=== PATIENT | male | born 1975 | race Caucasian/White ===

== ENCOUNTER 2018-06-02 20:06 | Inpatient (IN) | payer OTHER ==
[2018-06-02 20:50] VITALS: BMI 27.4
[2018-06-02] MEDS ORDERED: MELATONIN 5 MG TABLETS PO PRN (22:00)
--- NOTE | 2018-06-02 22:41 | HP ---
COWS - Scale Resting Pulse: 1= [place] 81-100 Sweatin=Flushed/Facial Moisture Restless Observation: 0= Sits Still Pupil Size: 0= Normal to Room Light Bone or Joint Aches: 4=Acute Joint/Muscle Pain Runny Nose/ Eye Tearin= Runny Nose/Eyes GI Upset > 30mins: 2= Nausea/Diarrhea (no diarrhea) Tremor Observation: 4= Gross Tremor/Twitching Yawning Observation: 0= None Anxiety or Irritability: 2=Irritable/Anxious Goose Flesh Skin: 0=Smooth Skin COWS Score: 17 Admission [facility] Chief Complaint: Heroin withdrawal symptoms History of Present Illness: 42 years old male with a long history of heroin dependence is seeking admission to detox. Patient has been in previous detox and reports 2 years of sobriety. He has medical history of anxiety. Denies suicide attempt and suicidal ideation at this time - Ebola screening Have you traveled outside of the country in the last 21 days: No (N) Have you had contact with anyone from an Ebola affected area: No Have you been sick,other than usual withdrawal symptoms: No Do you have a fever: No - Review of Systems Constitutional: Chills, Loss of Appetite, Malaise, Changes in sleep, Weakness EENT: reports: No Symptoms Reported Respiratory: reports: No Symptoms reported Cardiac: reports: No Symptoms Reported GI: reports: Poor Appetite, Poor Fluid Intake, Abdominal cramping : reports: No Symptoms Reported Musculoskeletal: reports: Joint Pain, Muscle Pain Integumentary: reports: Dryness Neuro: reports: Tremors Endocrine: reports: No Symptoms Reported Hematology: reports: No Symptoms Reported Psychiatric: reports: Anxious, Depressed Other Systems: Reviewed and Negative Patient History - Patient Medical History Hx Anemia: No Hx Asthma: No Hx Chronic Obstructive Pulmonary Disease (COPD): No Hx Cancer: No Hx Cardiac Disorders: No Hx Congestive Heart Failure: No Hx Hypertension: No Hx Hypercholesterolemia: No Hx Pacemaker: No HX Cerebrovascular Accident: No Hx Seizures: No Hx Dementia: No Hx Diabetes: No Hx Gastrointestinal Disorders: No Hx Liver Disease: No Hx Genitourinary Disorders: No Hx Sexually Transmitted Disorders: No Hx Renal Disease (ESRD): No Hx Thyroid Disease: No Hx Human Immunodeficiency Virus (HIV): No (Negative 2017) Hx Hepatitis C: No Hx Depression: No Hx Suicide Attempt: No (Denies suicidal ideation at this time) Hx Bipolar Disorder: No Hx Schizophrenia: No Other Medical History: Anxiety - Not on medication - Patient Surgical History Past Surgical History: No - PPD History Previous Implant?: No Documented Results: Negative w/o proof Implanted On Prior R Admission?: No PPD to be Administered?: Yes - Reproductive History Patient is a Female of Child Bearing Age (11 -55 yrs old): No (Male) - Smoking Cessation Smoking history: Current every day smoker Have you smoked in the past 12 months: Yes Aproximately how many cigarettes per day: 20 Hx Chewing Tobacco Use: No Initiated information on smoking cessation: Yes 'Breaking Loose' booklet given: 06/02/18 - Substance & Tx. History Hx Alcohol Use: No Hx Substance Use: Yes Substance Use Type: Cocaine, Opiates Hx Substance [facility]: [facility] [place] - Substances Abused Heroin Route: Injection Frequency: Daily Amount used: 20 bags Age of first use: 29 Date of Last Use: 06/02/18 Cocaine Route: Smoking Frequency: Daily Amount used: $40 Age of first use: 19 Date of Last Use: 06/01/18 Family Disease History - Family Disease History Family History: Denies Admission Physical Exam S - Vital Signs Vital Signs: Vital Signs - 24 hr 06/02/18 20:42 Temperature 97.7 F Pulse Rate 86 Respiratory 18 Rate Blood Pressure 150/100 - Physical General Appearance: Yes: No Apparent Distress, Moderate Distress, Tremorous, Irritable, Anxious HEENTM: Yes: EOMI, Normal ENT Inspection, Normocephalic, Normal Voice, CAR Respiratory: Yes: Lungs Clear, Normal Breath Sounds, No Respiratory Distress Neck: Yes: Supple Breast: Yes: Breast Exam Deferred Cardiology: Yes: Regular Rhythm, Regular Rate Abdominal: Yes: Normal Bowel Sounds, Soft Genitourinary: Yes: Within Normal Limits Back: Yes: Normal Inspection Musculoskeletal: Yes: Muscle Pain Extremities: Yes: Tremors Neurological: Yes: Alert, Normal Mood/Affect Integumentary: Yes: Warm Lymphatic: Yes: Within Normal Limits - Diagnostic (1) Anxiety Current Visit: Yes Status: Chronic (2) Opioid dependence with withdrawal Current Visit: Yes Status: Chronic (3) Nicotine dependence Current Visit: Yes Status: Chronic Qualifiers: Nicotine product type: cigarettes Substance use status: uncomplicated Qualified Code(s): F17.210 - Nicotine dependence, cigarettes, uncomplicated Cleared for Admission [facility] - Detox or Rehab [facility] Level of Care: Medically Managed Detox Regimen/Protocol: Methadone [facility] Breath Alcohol Content Breath Alcohol Content: 0 Urine Drug Screen - Results Drug Screen Negative: Yes Urine Drug Screen Results: MIKHAIL-Cocaine, OPI-Opiates
[2018-06-02] MEDS ORDERED: NICOTINE POLACRILEX 2 MG GUM BC PRN (22:50)
[2018-06-02] MEDS ORDERED: guaiFENesin/D-METHORPHAN HB 10 ML UNIT-DOSE CUPS PO PRN (22:50)
[2018-06-02] MEDS ORDERED: ACETAMINOPHEN 325 MG TABLET (FP) PO PRN (22:50)
[2018-06-02] MEDS ORDERED: MAG HYDROX/AL HYDROX/SIMETH 30 ML UNIT-DOSE CUP PO PRN (22:50)
[2018-06-02] MEDS ORDERED: IBUPROFEN 400 MG TABLET (FP) PO PRN (22:50)
[2018-06-02] MEDS ORDERED: LOPERAMIDE HCL 2 MG CAPSULE PO PRN (22:50)
[2018-06-02] MEDS ORDERED: MENTHOL/PHENOL 1 EACH UD MM PRN (22:50)
[2018-06-02] MEDS ORDERED: MAGNESIUM CITRATE 300 ML BOTTLE PO PRN (22:50)
[2018-06-02] MEDS ORDERED: MAGNESIUM HYDROX 2400MG/30ML ORAL SUSPENSION 30 ML CUP PO PRN (22:50)
[2018-06-02] MEDS ORDERED: METHADONE HCL 10 MG TABLET (FOR DETOX USE ONLY) PO ONE ×2 (22:50→23:00)
[2018-06-02] MEDS ORDERED: P-EPHED 60MG/TRIPROLIDI 2.5MG TABLET PO PRN (22:50)
[2018-06-03] MEDS ORDERED: diazePAM 5 MG TABLET PO PRN (00:28)
[2018-06-03] MEDS ORDERED: METHADONE HCL 10 MG TABLET (FOR DETOX USE ONLY) PO ONE ×4 (00:28→23:00)
[2018-06-03] MEDS: diazePAM 5 MG TABLET PO PRN ×3 (00:48→22:12)
[2018-06-03] MEDS: PRENATAL VITAMINS W/ FOLIC ACID TABLET (FP) PO SCH (10:12)
[2018-06-03] MEDS: NICOTINE 14 MG/24 HOURS TOPICAL PATCH TD SCH (10:12)
[2018-06-03 10:41] LABS: HEMATOCRIT 41.7 % (35.4-49); HEMOGLOBIN 14.1 GM/dL (11.7-16.9); MCH 30.8 pg (25.7-33.7); MCHC 33.8 g/dl (32.0-35.9); MEAN CELL VOLUME 91.2 fl (80-96); MEAN PLT VOLUME 7.3 fl (7.5-11.1); PLATELET COUNT 239 K/MM3 (134-434); RBC 4.57 M/mm3 (4.00-5.60); RDW 14.3 % (11.9-15.9); WHITE BLOOD COUNT 6.6 K/mm3 (4.0-10.0)
--- NOTE | 2018-06-03 10:54 | PN ---
BHS COWS - Scale Resting Pulse: 0= [place] 80 or Below Sweatin= No chills or Flushing Restless Observation: 0= Sits Still Pupil Size: 0= Normal to Room Light Bone or Joint Aches: 2= Severe Diffuse Aches Runny Nose/ Eye Tearin= None GI Upset > 30mins: 1= Stomach Cramp Tremor Observation of Outstretched Hands: 0= None Yawning Observation: 0= None Anxiety or Irritability: 0= None Goose Flesh Skin: 0=Smooth Skin COWS Score: 3 BHS Progress Note (SOAP) Subjective: PATIENT PRESENTS WITH BODY ACHES AND MILD NAUSEA AND STOMACH CRAMPS. Objective: 06/03/18 10:50 Laboratory Tests 06/03/18 07:00 WBC 6.6 RBC 4.57 Hgb 14.1 Hct 41.7 MCV 91.2 MCH 30.8 MCHC 33.8 RDW 14.3 Plt Count 239 MPV 7.3 L Vital Signs Temperature 97.4 F L 06/03/18 09:35 Pulse Rate 95 H 06/03/18 09:35 Respiratory Rate 18 06/03/18 09:35 Blood Pressure 123/80 06/03/18 09:35 O2 Sat by Pulse Oximetry (%) PE: ALERT AND ORIENTED SKIN WARM AND DRY CAR S1S2 RESP CTA BL GI SOFT, BS, NT EXT NO EDEMA Assessment: 06/03/18 10:52 A/P: WITHDRAWAL SYNDROME Plan: CONTINUE DETOX PER PROTOCOL ENCOURAGE ORAL FLUIDS CONTINUE TO MONITOR CLINICALLY
[2018-06-03 11:42] LABS: ALBUMIN 3.3 g/dl (3.4-5.0); ALK PHOS 91 U/L (45-117); ANION GAP 11 MMOL/L (8-16); BILIRUBIN,TOTAL 0.4 mg/dL (0.2-1); BLOOD UREA NITROGEN 9 mg/dL (7-18); CALCIUM 8.5 mg/dL (8.5-10.1); CHLORIDE 105 mmol/L (98-107); CO2 27 mmol/L (21-32); CREATININE 0.6 mg/dL (0.55-1.3); GLUCOSE,RANDOM 66 mg/dL (74-106); POTASSIUM 3.7 mmol/L (3.5-5.1); SGOT/AST 29 U/L (15-37); SGPT/ALT 32 U/L (13-61); SODIUM 143 mmol/L (136-145)
--- NOTE | 2018-06-03 16:36 | EKG ---
Test Reason : Blood Pressure : / mmHG Vent. Rate : 063 BPM Atrial Rate : 063 BPM P-R Int : 142 ms QRS Dur : 094 ms QT Int : 386 ms P-R-T Axes : 071 064 052 degrees QTc Int : 395 ms NORMAL SINUS RHYTHM NORMAL ECG NO PREVIOUS ECGS AVAILABLE Confirmed by MD Dulce, Onel ([id number]) on 06/03/2018 4:35:54 PM Referred By: Confirmed By:Onel Cardona MD
--- NOTE | 2018-06-03 18:10 | CONSULT ---
[facility] Psychiatric Consult - Data Date of interview: 06/03/18 Admission source: [facility] Identifying data: Readmission to [facility] for this 42 y/o male self referred for detoxification treatment (heroin,cocaine).Admitted to [address] [place] [address].Patient is ,a father of two,domiciled,currently unemployed and deprived of income. Substance Abuse History: Discusssed with patient in this interview.patient admits to a heavy dependence on heroin and cocaine.Details in current [facility] report : Smoking history: Current every day smoker. Have you smoked in the past 12 months: Yes. Aproximately how many cigarettes per day: 20. Hx Chewing Tobacco Use: No. Initiated information on smoking cessation: Yes. 'Breaking Loose' booklet given: 06/02/18. - Substance & Tx. History. Hx Alcohol Use: No. Hx Substance Use: Yes. Substance Use Type: Cocaine, Opiates. Hx Substance Use Treatment: Yes ([facility], [place], [place]). - Substances Abused. Heroin. Route: Injection. Frequency: Daily. Amount used: 20 bags. Age of first use: 29. Date of Last Use: 06/02/18. Cocaine. Route: Smoking. Frequency: Daily. Amount used: $40. Age of first use: 19. Date of Last Use: 06/01/18 Medical History: Patient endorses good general health. Psychiatric History: Patient denies. Physical/Sexual Abuse/Trauma History: Patient denies. Additional Comment: Urine Drug Screen Results: MIKHAIL-Cocaine, OPI-Opiates.Noted. Mental Status Exam - Mental Status Exam Alert and Oriented to: Time, Place, Person Cognitive Function: Good Patient Appearance: Disheveled Mood: Hostile, Nervous, Withdrawn, Irritable Affect: Mood Congruent Patient Behavior: Fatigued, Uncooperative Speech Pattern: Clear Voice Loudness: Normal Thought Process: Goal Oriented Thought Disorder: Not Present Hallucinations: Denies Suicidal Ideation: Denies Homicidal Ideation: Denies Insight/Judgement: Poor Sleep: Well Appetite: Good Muscle strength/Tone: Normal Gait/Station: Other (not observed ; in bed during entire interview) Psychiatric Findings - Problem List ([place] 1, 2,3) (1) Opioid dependence with withdrawal Current Visit: Yes Status: Acute (2) Cocaine dependence Current Visit: Yes Status: Acute (3) Nicotine dependence Current Visit: Yes Status: Acute Qualifiers: Nicotine product type: cigarettes Substance use status: uncomplicated Qualified Code(s): F17.210 - Nicotine dependence, cigarettes, uncomplicated - Initial Treatment Plan Initial Treatment Plan: Psychoeducation.Sleep hygiene.Detoxification.Patient is encouraged to get out bed, join in activities and participate in daily therapy sessions.Not receptive to redirections.Will continue to observe.Patient declines psychotropic medications with the exception of the components of his detoxification protocol.No indication for active psychiatric intervention.
[2018-06-03] MEDS ORDERED: THIAMINE HCL 100 MG TABLET (FP) PO SCH (22:00)
[2018-06-04 09:15] VITALS: BP 103/67; PULSE 98; TEMP 97.3
[2018-06-04] MEDS ORDERED: METHADONE HCL 5 MG TABLET (FOR DETOX USE ONLY) PO ONE (10:00)
[2018-06-04] MEDS ORDERED: METHADONE HCL 10 MG TABLET (FOR DETOX USE ONLY) PO ONE (10:00)
[2018-06-04] MEDS: NICOTINE 14 MG/24 HOURS TOPICAL PATCH TD SCH (10:11)
[2018-06-04] MEDS: PRENATAL VITAMINS W/ FOLIC ACID TABLET (FP) PO SCH (10:11)
--- NOTE | 2018-06-04 14:03 | PN ---
S Progress Note Note: NOTIFIED BY RN PATIENT REQUESTED TO SIGN OUT AMA. PATIENT EVALUATED AND IS CLINICALLY STABLE. ALERT AND ORIENTED X 3. SKIN WARM AND DRY. DENIES SI/HI. PATIENT ENCOURAGED TO COMPLETE DETOX BUT REFUSED. ENCOURAGED TO ATTEND GROUP MEETINGS TO PREVENT RELAPSE. Vital Signs Temperature 97.3 F L 06/04/18 09:14 Pulse Rate 98 H 06/04/18 09:14 Respiratory Rate 18 06/04/18 09:14 Blood Pressure 103/67 06/04/18 09:14 O2 Sat by Pulse Oximetry (%) Laboratory Tests 06/03/18 06/03/18 06/03/18 07:00 07:00 07:00 WBC 6.6 RBC 4.57 Hgb 14.1 Hct 41.7 MCV 91.2 MCH 30.8 MCHC 33.8 RDW 14.3 Plt Count 239 MPV 7.3 L Sodium 143 Potassium 3.7 Chloride 105 Carbon Dioxide 27 Anion Gap 11 BUN 9 Creatinine 0.6 Creat Clearance w eGFR > 60 Random Glucose 66 L Calcium 8.5 Total Bilirubin 0.4 AST 29 ALT 32 Alkaline Phosphatase 91 Total Protein 6.0 L Albumin 3.3 L RPR Titer Nonreactive
[2018-06-05] MEDS ORDERED: METHADONE HCL 5 MG TABLET (FOR DETOX USE ONLY) PO ONE ×2 (10:00)
[2018-06-06] MEDS ORDERED: METHADONE HCL 10 MG TABLET (FOR DETOX USE ONLY) PO ONE (10:00)
[2018-06-06] MEDS ORDERED: METHADONE HCL 5 MG TABLET (FOR DETOX USE ONLY) PO ONE (10:00)
[2018-06-07] MEDS ORDERED: METHADONE HCL 5 MG TABLET (FOR DETOX USE ONLY) PO ONE (06:00)
[2018-06-07] MEDS ORDERED: METHADONE HCL 10 MG TABLET (FOR DETOX USE ONLY) PO ONE (10:00)
[2018-06-08] MEDS ORDERED: METHADONE HCL 5 MG TABLET (FOR DETOX USE ONLY) PO ONE (06:00)
== END 2018-06-04 11:00 | disposition home or self-care (01) | DRG 773 ==
LOC: YASAS 20:06 → Y3N 22:54
PROC: HZ2ZZZZ Detoxification Services for Substance Abuse Treatment (ICD-10-PCS; principal; 2018-06-02)
DX: F11.23 Opioid dependence with withdrawal (principal); F14.20 Cocaine dependence, uncomplicated; F17.210 Nicotine dependence, cigarettes, uncomplicated; F41.9 Anxiety disorder, unspecified
CPT/HCPCS: 36415; 80053; 85027; 86593; 93005; 93010

== ENCOUNTER 2018-10-04 18:36 | Inpatient (IN) | payer OTHER ==
[2018-10-04 19:17] VITALS: BMI 25.7
--- NOTE | 2018-10-04 21:01 | HP ---
"COWS - Scale Resting Pulse: 0= [place] 80 or Below Sweatin=Flushed/Facial Moisture Restless Observation: 5= Unable to Sit Still Pupil Size: 0= Normal to Room Light Bone or Joint Aches: 4=Acute Joint/Muscle Pain Runny Nose/ Eye Tearin= Nasal Congestion GI Upset > 30mins: 3= Vomiting/Diarrhea Tremor Observation: 0= None Yawning Observation: 1= 1-2x During Session Anxiety or Irritability: 2=Irritable/Anxious Goose Flesh Skin: 0=Smooth Skin COWS Score: 18 CIWA Score - Admission Criteria [facility] Guidelines: Admission for Medically Managed Detox: Requires at least one of the followin. CIWA greater than 12 2. Seizures within the past 24 hours 3. Delirium tremens within the past 24 hours 4. Hallucinations within the past 24 hours 5. Acute intervention needed for co occurring medical disorder 6. Acute intervention needed for co occurring psychiatric disorder 7. Severe withdrawal that cannot be handled at a lower level of care (continued vomiting, continued diarrhea, abnormal vital signs) requiring intravenous medication and/or fluids 8. Admission ROS [facility] Chief Complaint: C/O WORSENING WITHDRAWAL SX'S. SEEKING DETOX Allergies/Adverse Reactions: Allergies Allergy/AdvReac Type Severity Reaction Status Date / Time seafood Allergy Mild Hives Uncoded 10/04/18 20:49 History of Present Illness: 42 Y.O. MALE WITH HX/O OPIOID DEPENDENCE HERE FOR DETOX. CLIENT IS KNOWN TO THIS PROGRAM. SELF REFERRED TODAY. PRESENTING W/ C/O WORSENING WITHDRAWAL SX'S. COW 18 . HE REPORTS RECENT FAILED ATTEMPT OF SBX MGMT. LAST RX NOTED 7 DAYS AGO FOR 7 DAY SUPPLY. CLIENT STATES HE HAS BEEN USING HEROIN BECAUSE THE SBX IS NOT HOLDING HIM AND NO LONGER WANTS TO CONTINUE IT. UTOX NEG FOR SBX. 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 DENIES RECENT CLEAN TIME. REPORTS HX/O 4 DRUG OVERDOSE. DENIES HX/O OR PRESENT SI/HI, AVH, SEIZURE D/O. LIVES ALONE IN AN APT, EMPLOYED- [employer], DENIES LEGALS PMHX- DENIES PSYCH- DENIES Search Terms: TANYA COATES, 1975 Search Date: 10/04/2018 08:52:02 PM The Drug Utilization Report below displays all of the controlled substance prescriptions, if any, that your patient has filled in the last twelve months. The information displayed on this report is compiled from pharmacy submissions to the Department, and accurately reflects the information as submitted by the pharmacies. This report was requested by: Mabel Smith | Reference #: [id number] You have not added a NICOLE number. Keeping your NICOLE number(s) up to date on the My NICOLE Numbers page will enable the separation of your prescriptions from others ' in the search results. Others' Prescriptions Patient Name: Tanya Coates Date: 1975 Address: [address] [place] [address] Sex: Male Rx Written Rx Dispensed Drug Quantity Days Supply Prescriber Name 09/25/2018 09/27/2018 suboxone 8 mg-2 mg sl film 21 7 David Forde Jr, MD 09/04/2018 09/05/2018 suboxone 8 mg-2 mg sl film 42 14 Shea Sue MD 08/18/2018 08/18/2018 suboxone 8 mg-2 mg sl film 42 14 David Forde Jr, MD 08/05/2018 08/06/2018 suboxone 8 mg-2 mg sl film 42 14 Cordell Coe MD 07/14/2018 07/19/2018 clonazepam 1 mg tablet 14 7 Iris Mooney MD Exam Limitations: No Limitations - Ebola screening Have you traveled outside of the country in the last 21 days: No Have you been sick,other than usual withdrawal symptoms: No Do you have a fever: No - Review of Systems Constitutional: Chills, Loss of Appetite, Malaise, Night Sweats, Changes in sleep, Unintentional Wgt. Loss EENT: reports: Dental Problems (TOP DENTURES MISSING BOTTOM TEETH) Respiratory: reports: No Symptoms reported Cardiac: reports: No Symptoms Reported GI: reports: Nausea, Poor Appetite, Poor Fluid Intake, Vomiting, Abdominal cramping : reports: No Symptoms Reported Musculoskeletal: reports: Back Pain Integumentary: reports: Flushing Neuro: reports: No Symptoms reported Endocrine: reports: No Symptoms Reported Hematology: reports: No Symptoms Reported Psychiatric: reports: Anxious, Depressed Other Systems: Reviewed and Negative Patient History - Patient Medical History Hx Anemia: No Hx Asthma: No Hx Chronic Obstructive Pulmonary Disease (COPD): No Hx Cancer: No Hx Cardiac Disorders: No Hx Congestive Heart Failure: No Hx Hypertension: No Hx Hypercholesterolemia: No Hx Pacemaker: No HX Cerebrovascular Accident: No Hx Seizures: No Hx Dementia: No Hx Diabetes: No Hx Gastrointestinal Disorders: No Hx Liver Disease: No Hx Genitourinary Disorders: No Hx Sexually Transmitted Disorders: No Hx Renal Disease (ESRD): No Hx Thyroid Disease: No Hx Human Immunodeficiency Virus (HIV): No Hx Hepatitis C: No Hx Depression: Yes Hx Suicide Attempt: No Hx Bipolar Disorder: No Hx Schizophrenia: No - Patient Surgical History Past Surgical History: Yes Other Surgical History: TONSILECTOMY Anesthesia Reaction: No - PPD History Previous Implant?: Yes Documented Results: Negative w/o proof Implanted On Prior [facility] Admission?: No PPD to be Administered?: Yes - Smoking Cessation Smoking history: Current every day smoker Have you smoked in the past 12 months: Yes Aproximately how many cigarettes per day: 30 Hx Chewing Tobacco Use: No Initiated information on smoking cessation: Yes 'Breaking Loose' booklet given: 10/04/18 - Substance & Tx. History Hx Alcohol Use: No Hx Substance Use: Yes Substance Use Type: Heroin Hx Substance Use Treatment: Yes ([facility]) - Substances Abused Heroin Route: Injection Frequency: Daily Amount used: 15 BAGS Age of first use: 34 Date of Last Use: 10/04/18 Family Disease History - Family Disease History Family Disease History: Other: Grandparent (ALCOHOLISM), Father (HEROIN ADDICT) , Mother (ALCOHOLISM) Admission Physical Exam BHS - Vital Signs Vital Signs: Vital Signs - 24 hr 10/04/18 19:14 Temperature 97.7 F Pulse Rate 69 Respiratory 18 Rate Blood Pressure 146/76 - Physical General Appearance: Yes: Appropriately Dressed, Mild Distress, Sweating (FLUSHED ), Anxious HEENTM: Yes: EOMI, Normocephalic, Normal Voice, CAR, Pharynx Normal, Nasal Congestion, Other (POOR DENTITION TOP DENTURES AND MISSING BOTTOM TEETH) Respiratory: Yes: Chest Non-Tender, Lungs Clear, Normal Breath Sounds, No Respiratory Distress, No Accessory Muscle Use Neck: Yes: No masses,lesions,Nodules, Supple, Trachea in good position Breast: Yes: Breast Exam Deferred Cardiology: Yes: Regular Rhythm, Regular Rate, S1, S2 Abdominal: Yes: Normal Bowel Sounds, Non Tender, Flat, Soft Genitourinary: Yes: Other (NO C/O) Back: Yes: Normal Inspection Musculoskeletal: Yes: full range of Motion, Gait Steady Extremities: Yes: Normal Capillary Refill, Normal Range of Motion, Non-Tender, Other (SCABBED ABRASIONS TO RIGHT HAND DIGITS) Neurological: Yes: dural mechanic II-XII NML intact, Fully Oriented, Alert, Motor Strength 5/5 Integumentary: Yes: Warm, Other (FLUSHED) Lymphatic: Yes: Within Normal Limits - Diagnostic (1) Substance induced mood disorder Current Visit: Yes Status: Acute (2) IVDU (intravenous drug user) Current Visit: Yes Status: Chronic (3) Nicotine dependence Current Visit: Yes Status: Chronic Qualifiers: Nicotine product type: cigarettes Substance use status: uncomplicated Qualified Code(s): F17.210 - Nicotine dependence, cigarettes, uncomplicated (4) Opioid dependence with withdrawal Current Visit: Yes Status: Acute (5) Dry mucous membranes Current Visit: Yes Status: Acute (6) At risk for dehydration due to poor fluid intake Current Visit: Yes Status: Acute Cleared for Admission [facility] - Detox or Rehab [facility] Level of Care: Medically Managed Detox Regimen/Protocol: Methadone Claeared for Rehab Admission: No [facility] Breath Alcohol Content Breath Alcohol Content: 0 Urine Drug Screen - Results Drug Screen Negative: No Urine Drug Screen Results: FEN-Fentanyl"
[2018-10-04] MEDS ORDERED: MENTHOL/PHENOL 1 EACH UD MM PRN (21:07)
[2018-10-04] MEDS ORDERED: MAGNESIUM HYDROX 2400MG/30ML ORAL SUSPENSION 30 ML CUP PO PRN (21:07)
[2018-10-04] MEDS ORDERED: guaiFENesin/D-METHORPHAN HB 10 ML UNIT-DOSE CUPS PO PRN (21:07)
[2018-10-04] MEDS ORDERED: MAGNESIUM CITRATE 300 ML BOTTLE PO PRN (21:07)
[2018-10-04] MEDS ORDERED: IBUPROFEN 400 MG TABLET (FP) PO PRN (21:07)
[2018-10-04] MEDS ORDERED: P-EPHED 60MG/TRIPROLIDI 2.5MG TABLET PO PRN (21:07)
[2018-10-04] MEDS ORDERED: ACETAMINOPHEN 325 MG TABLET (FP) PO PRN (21:07)
[2018-10-04] MEDS ORDERED: MAG HYDROX/AL HYDROX/SIMETH 30 ML UNIT-DOSE CUP PO PRN (21:07)
[2018-10-04] MEDS ORDERED: NICOTINE POLACRILEX 2 MG GUM BC PRN (21:07)
[2018-10-04] MEDS ORDERED: LOPERAMIDE HCL 2 MG CAPSULE PO PRN (21:07)
[2018-10-04] MEDS ORDERED: METHADONE HCL 10 MG TABLET (FOR DETOX USE ONLY) PO ONE ×2 (21:07→23:00)
[2018-10-04] MEDS ORDERED: MELATONIN 5 MG TABLETS PO PRN (22:00)
[2018-10-04] MEDS: diazePAM 5 MG TABLET PO PRN (23:19)
[2018-10-04] MEDS: THIAMINE HCL 100 MG TABLET (FP) PO SCH (23:22)
[2018-10-05] MEDS ORDERED: METHADONE HCL 10 MG TABLET (FOR DETOX USE ONLY) PO ONE (10:00)
[2018-10-05] MEDS: diazePAM 5 MG TABLET PO PRN ×2 (10:06→17:20)
[2018-10-05] MEDS: PRENATAL VITAMINS W/ FOLIC ACID TABLET (FP) PO SCH (10:06)
[2018-10-05] MEDS: NICOTINE 21 MG/24 HOURS TOPICAL PATCH TD SCH (10:06)
[2018-10-05 11:29] LABS: URINE APPEARANCE CLEAR; URINE BILIRUBIN NEGATIVE (<2.0 mg/dL); URINE COLOR YELLOW; URINE GLUCOSE (UA) NEGATIVE (NEGATIVE); URINE KETONE NEGATIVE (NEGATIVE); URINE LEUK ESTERASE NEGATIVE (NEGATIVE); URINE NITRITE NEGATIVE (NEGATIVE); URINE PROTEIN NEGATIVE (NEGATIVE); URINE UROBILINOGEN NEGATIVE mg/dL (0.2-1.0)
--- NOTE | 2018-10-05 14:20 | PN ---
S COWS - Scale Resting Pulse: 0= [place] 80 or Below Sweatin= Chills/Flushing Restless Observation: 1= Difficult to Sit Still Pupil Size: 1= Pupils >than Normal Bone or Joint Aches: 2= Severe Diffuse Aches Runny Nose/ Eye Tearin= Nasal Congestion GI Upset > 30mins: 2= Nausea/Diarrhea Tremor Observation of Outstretched Hands: 2= Slight Tremor Visible Yawning Observation: 2= >3x During Session Anxiety or Irritability: 2=Irritable/Anxious Goose Flesh Skin: 0=Smooth Skin COWS Score: 14 BHS Progress Note (SOAP) Subjective: irritable tremor body aches sweating restlessness Objective: 10/05/18 14:20 Vital Signs Temperature 96.4 F L 10/05/18 13:21 Pulse Rate 86 10/05/18 13:21 Respiratory Rate 18 10/05/18 13:21 Blood Pressure 112/78 10/05/18 13:21 O2 Sat by Pulse Oximetry (%) Laboratory Last Values Urine Color Yellow 10/05/18 08:20 Urine Appearance Clear 10/05/18 08:20 Urine pH 5.0 (5.0-8.0) 10/05/18 08:20 Ur Specific [place] 1.016 (1.010-1.035) 10/05/18 08:20 Urine Protein Negative (NEGATIVE) 10/05/18 08:20 Urine Glucose (UA) Negative (NEGATIVE) 10/05/18 08:20 Urine Ketones Negative (NEGATIVE) 10/05/18 08:20 Urine Blood Negative (NEGATIVE) 10/05/18 08:20 Urine Nitrite Negative (NEGATIVE) 10/05/18 08:20 Urine Bilirubin Negative (<2.0 mg/dL) 10/05/18 08:20 Urine Urobilinogen Negative mg/dL (0.2-1.0) 10/05/18 08:20 Ur Leukocyte Esterase Negative (NEGATIVE) 10/05/18 08:20 lab noted Assessment: 10/05/18 14:22 withdrawal sx Plan: continue detox
[2018-10-05] MEDS: THIAMINE HCL 100 MG TABLET (FP) PO SCH (23:19)
[2018-10-06] MEDS ORDERED: METHADONE HCL 5 MG TABLET (FOR DETOX USE ONLY) PO ONE (10:00)
[2018-10-06] MEDS: diazePAM 5 MG TABLET PO PRN ×2 (10:06→16:33)
[2018-10-06] MEDS: NICOTINE 21 MG/24 HOURS TOPICAL PATCH TD SCH (10:06)
[2018-10-06] MEDS: PRENATAL VITAMINS W/ FOLIC ACID TABLET (FP) PO SCH (10:06)
--- NOTE | 2018-10-06 11:32 | PN ---
S COWS - Scale Resting Pulse: 0= [place] 80 or Below Sweatin= Chills/Flushing Restless Observation: 1= Difficult to Sit Still Pupil Size: 1= Pupils >than Normal Bone or Joint Aches: 2= Severe Diffuse Aches Runny Nose/ Eye Tearin= Nasal Congestion GI Upset > 30mins: 2= Nausea/Diarrhea Tremor Observation of Outstretched Hands: 1= Tremor [place], Not Seen Yawning Observation: 1= 1-2x During Session Anxiety or Irritability: 1=Feels Anxious/Irritable Goose Flesh Skin: 0=Smooth Skin COWS Score: 11 S Progress Note (SOAP) Subjective: body aches joints pain irritable agitative Objective: 10/06/18 11:32 Vital Signs Temperature 98.6 F 10/06/18 09:15 Pulse Rate 64 10/06/18 09:15 Respiratory Rate 18 10/06/18 09:15 Blood Pressure 125/72 10/06/18 09:15 O2 Sat by Pulse Oximetry (%) Laboratory Last Values Urine Color Yellow 10/05/18 08:20 Urine Appearance Clear 10/05/18 08:20 Urine pH 5.0 (5.0-8.0) 10/05/18 08:20 Ur Specific [place] 1.016 (1.010-1.035) 10/05/18 08:20 Urine Protein Negative (NEGATIVE) 10/05/18 08:20 Urine Glucose (UA) Negative (NEGATIVE) 10/05/18 08:20 Urine Ketones Negative (NEGATIVE) 10/05/18 08:20 Urine Blood Negative (NEGATIVE) 10/05/18 08:20 Urine Nitrite Negative (NEGATIVE) 10/05/18 08:20 Urine Bilirubin Negative (<2.0 mg/dL) 10/05/18 08:20 Urine Urobilinogen Negative mg/dL (0.2-1.0) 10/05/18 08:20 Ur Leukocyte Esterase Negative (NEGATIVE) 10/05/18 08:20 lab noted Assessment: 10/06/18 11:33 withdrawal sx Plan: continue detox
[2018-10-06] MEDS: THIAMINE HCL 100 MG TABLET (FP) PO SCH (22:50)
[2018-10-07 06:39] VITALS: BP 138/83; PULSE 65; TEMP 98
[2018-10-07] MEDS ORDERED: METHADONE HCL 5 MG TABLET (FOR DETOX USE ONLY) PO ONE (10:00)
--- NOTE | 2018-10-07 12:27 | DS ---
[facility] Detox Discharge Summary Admission Date: 10/04/18 Discharge Date: 10/07/18 - History Present History: Opioid Dependence Additional Comments: 42 years old male admitted on 10/04/18 for opiate withdrawal stabilization insists to leave the detox facility that he received 21 SL suboxone 8-2 mg film on 09/26/18 and preferred to return to the medication assisted program patient admitted that he is using fentanyl - Physical Exam Results Vital Signs: Vital Signs Temperature 98 F 10/07/18 06:38 Pulse Rate 65 10/07/18 06:38 Respiratory Rate 18 10/07/18 06:38 Blood Pressure 138/83 10/07/18 06:38 O2 Sat by Pulse Oximetry (%) Pertinent Admission Physical Exam Findings: opiate withdrawal sx Laboratory Last Values Urine Color Yellow 10/05/18 08:20 Urine Appearance Clear 10/05/18 08:20 Urine pH 5.0 (5.0-8.0) 10/05/18 08:20 Ur Specific [place] 1.016 (1.010-1.035) 10/05/18 08:20 Urine Protein Negative (NEGATIVE) 10/05/18 08:20 Urine Glucose (UA) Negative (NEGATIVE) 10/05/18 08:20 Urine Ketones Negative (NEGATIVE) 10/05/18 08:20 Urine Blood Negative (NEGATIVE) 10/05/18 08:20 Urine Nitrite Negative (NEGATIVE) 10/05/18 08:20 Urine Bilirubin Negative (<2.0 mg/dL) 10/05/18 08:20 Urine Urobilinogen Negative mg/dL (0.2-1.0) 10/05/18 08:20 Ur Leukocyte Esterase Negative (NEGATIVE) 10/05/18 08:20 lab noted - Treatment Hospital Course: Detox Protocol Followed, Responded well Patient has Accepted a Rehab Referral to: suboxone maintenance program - Medication Discharge Medications: Ambulatory Orders NK [No Known Home Medication] 06/03/18 - Diagnosis (1) Opioid dependence with withdrawal Status: Acute (2) Substance induced mood disorder Status: Suspected (3) Nicotine dependence Status: Acute Qualifiers: Nicotine product type: cigarettes Substance use status: in withdrawal Qualified Code(s): F17.213 - Nicotine dependence, cigarettes, with withdrawal - AMA Did Patient Leave Against Medical Advice: Yes
[2018-10-08] MEDS ORDERED: METHADONE HCL 10 MG TABLET (FOR DETOX USE ONLY) PO ONE (10:00)
[2018-10-09] MEDS ORDERED: METHADONE HCL 5 MG TABLET (FOR DETOX USE ONLY) PO ONE (06:00)
== END 2018-10-07 08:45 | disposition left against medical advice (07) | DRG 770 ==
LOC: YASAS 18:36 → Y3N 21:10
PROVIDERS: ADMIT Neuromusculoskeletal Medicine & OMM; ATTEND Neuromusculoskeletal Medicine & OMM
PROC: HZ2ZZZZ Detoxification Services for Substance Abuse Treatment (ICD-10-PCS; principal; 2018-10-04)
DX: F11.23 Opioid dependence with withdrawal (principal); F17.213 Nicotine dependence, cigarettes, with withdrawal; F19.24 Other psychoactive substance dependence with psychoactive substance-induced mood disorder; R68.2 Dry mouth, unspecified; Z91.89 Other specified personal risk factors, not elsewhere classified
CPT/HCPCS: 81003

== ENCOUNTER 2019-07-28 15:14 | Inpatient (IN) | payer SELFPAY ==
[2019-07-28 16:53] VITALS: BMI 28.3
--- NOTE | 2019-07-28 18:03 | HP ---
COWS - Scale Resting Pulse: 1= [place] 81-100 Sweatin= Chills/Flushing Restless Observation: 1= Difficult to Sit Still Pupil Size: 1= Pupils >than Normal Bone or Joint Aches: 1= Mild Discomfort Runny Nose/ Eye Tearin= Nasal Congestion GI Upset > 30mins: 1= Stomach Cramp Tremor Observation: 1= Tremor [place], Not Seen Yawning Observation: 1= 1-2x During Session Anxiety or Irritability: 1=Feels Anxious/Irritable Goose Flesh Skin: 3=Piloerection COWS Score: 13 CIWA Score - Admission Criteria OASAS Guidelines: Admission for Medically Managed Detox: Requires at least one of the followin. CIWA greater than 12 2. Seizures within the past 24 hours 3. Delirium tremens within the past 24 hours 4. Hallucinations within the past 24 hours 5. Acute intervention needed for co occurring medical disorder 6. Acute intervention needed for co occurring psychiatric disorder 7. Severe withdrawal that cannot be handled at a lower level of care (continued vomiting, continued diarrhea, abnormal vital signs) requiring intravenous medication and/or fluids 8. Admitting History and Physical - Smoking History Smoking history: Current every day smoker Have you smoked in the past 12 months: Yes Aproximately how many cigarettes per day: 30 - Alcohol/Substance Use Hx Alcohol Use: No Admission ROS [facility] Chief Complaint: heroin detox Allergies/Adverse Reactions: Allergies Allergy/AdvReac Type Severity Reaction Status Date / Time fish derived Allergy Mild Hives Verified 07/28/19 16:46 shellfish derived Allergy Mild Hives Verified 07/28/19 16:46 seafood Allergy Mild Hives Uncoded 07/28/19 16:46 History of Present Illness: 43 yo with long h/o OUD. Here for detox. Was in a methadone MAT left 2002. Was getting Vivitrol- stopped after 2 months, last dose 2 months ago. Started when he was in [facility] and only took one dose- had a large copay $400/month and so left. no meds, no PCP, living in [place]. Works as [employer] Heroin- 15 bags/day, IH, last OD- last year. Instructed how to get a narcan kit. Utox- mop/Fen ARABELLA- 0 DUR- no recent meds - Ebola screening Have you traveled outside of the country in the last 21 days: No Have you had contact with anyone from an Ebola affected area: No - Review of Systems Constitutional: No Symptoms Reported EENT: reports: No Symptoms Reported Respiratory: reports: No Symptoms reported Cardiac: reports: No Symptoms Reported GI: reports: No Symptoms Reported : reports: No Symptoms Reported Musculoskeletal: reports: No Symptoms Reported Integumentary: reports: No Symptoms Reported Neuro: reports: No Symptoms reported Endocrine: reports: No Symptoms Reported Hematology: reports: No Symptoms Reported Psychiatric: reports: No Sypmtoms Reported Patient History - Patient Medical History Hx Anemia: No Hx Asthma: No Hx Chronic Obstructive Pulmonary Disease (COPD): No Hx Cancer: No Hx Cardiac Disorders: No Hx Congestive Heart Failure: No Hx Hypertension: No Hx Hypercholesterolemia: No Hx Pacemaker: No HX Cerebrovascular Accident: No Hx Seizures: No Hx Dementia: No Hx Diabetes: No Hx Gastrointestinal Disorders: No Hx Liver Disease: No Hx Genitourinary Disorders: No Hx Sexually Transmitted Disorders: No Hx Renal Disease (ESRD): No Hx Thyroid Disease: No Hx Human Immunodeficiency Virus (HIV): No Hx Hepatitis C: No Hx Depression: Yes Hx Suicide Attempt: No Hx Bipolar Disorder: No Hx Schizophrenia: No - Patient Surgical History Past Surgical History: Yes Other Surgical History: TONSILECTOMY Anesthesia Reaction: No - PPD History Date: 10/06/18 - Smoking Cessation Smoking history: Current every day smoker Have you smoked in the past 12 months: Yes Aproximately how many cigarettes per day: 20 Hx Chewing Tobacco Use: No Initiated information on smoking cessation: Yes 'Breaking Loose' booklet given: 07/28/19 - Substances abused Heroin Substance route: Inhalation Amount used: 14 BAGS Age of first use: 34 Date of last use: 07/28/19 Alprazolam (Xanax) Substance route: Oral Frequency: Daily Amount used: 4mg Age of first use: 34 Date of last use: 07/26/19 Admission Physical Exam [facility] - Vital Signs Vital Signs: Vital Signs - 24 hr 07/28/19 16:44 Temperature 99.1 F Respiratory 16 Rate Blood Pressure 140/93 - Physical General Appearance: Yes: Moderate Distress HEENTM: Yes: Within Normal Limits, EOMI, Hearing grossly Normal Respiratory: Yes: Within Normal Limits, Lungs Clear Neck: Yes: Within Normal Limits Cardiology: Yes: Within Normal Limits, Regular Rhythm, Regular Rate Abdominal: Yes: Within Normal Limits Genitourinary: Yes: Within Normal Limits Back: Yes: Within Normal Limits Musculoskeletal: Yes: Within Normal Limits Extremities: Yes: Within Normal Limits Neurological: Yes: Within Normal Limits, Fully Oriented, Alert Integumentary: Yes: Within Normal Limits Lymphatic: Yes: Within Normal Limits - Diagnostic (1) Nicotine dependence Current Visit: No Status: Acute Qualifiers: Nicotine product type: cigarettes Substance use status: in withdrawal Qualified Code(s): F17.213 - Nicotine dependence, cigarettes, with withdrawal (2) Opioid dependence with withdrawal Current Visit: No Status: Acute Breathalyzer - Breathalyzer Breathalyzer: 0 Urine Drug Screen - Test Device Lot number: [id number] Expiration date: 03/08/21 - Control Is test valid?: Yes - Results Drug screen NEGATIVE: No Urine drug screen results: FEN-Fentanyl, MOP-Opiates Inpatient Rehab Admission - Rehab Decision to Admit Inpatient rehab admission?: No
[2019-07-28] MEDS ORDERED: MENTHOL/PHENOL 1 EACH UD MM PRN (18:07)
[2019-07-28] MEDS ORDERED: clonazePAM 0.5 MG TABLET PO PRN (18:07)
[2019-07-28] MEDS ORDERED: NALOXONE HCL 0.4 MG/ML VIAL IM PRN (18:07)
[2019-07-28] MEDS ORDERED: NICOTINE POLACRILEX 4 MG GUM BUC PRN (18:07)
[2019-07-28] MEDS ORDERED: METHOCARBAMOL 500 MG TABLET PO PRN (18:07)
[2019-07-28] MEDS ORDERED: hydrOXYzine PAMOATE 25 MG CAPSULE (FP) PO PRN (18:07)
[2019-07-28] MEDS ORDERED: IBUPROFEN 400 MG TABLET (FP) PO PRN (18:07)
[2019-07-28] MEDS ORDERED: MELATONIN 5 MG TABLETS PO PRN (18:07)
[2019-07-28] MEDS ORDERED: MAGNESIUM HYDROX 2400MG/30ML ORAL SUSPENSION 30 ML CUP PO PRN (18:07)
[2019-07-28] MEDS ORDERED: MAG HYDROX/AL HYDROX/SIMETH 30 ML UNIT-DOSE CUP PO PRN (18:07)
[2019-07-28] MEDS ORDERED: ACETAMINOPHEN 325 MG TABLET (FP) PO PRN ×2 (18:07)
[2019-07-28] MEDS ORDERED: BISMUTH SUBSALICYLATE 524 MG/30 ML UD PO PRN (18:07)
[2019-07-28] MEDS ORDERED: MAGNESIUM CITRATE 300 ML BOTTLE PO PRN (18:07)
[2019-07-28] MEDS ORDERED: cloNIDine HCL 0.1 MG TABLET PO PRN (18:07)
[2019-07-28] MEDS ORDERED: METHADONE HCL 10 MG TABLET (FOR DETOX USE ONLY) PO ONE (18:30)
[2019-07-28] MEDS ORDERED: THIAMINE HCL 100 MG TABLET (FP) PO SCH (22:00)
[2019-07-29] MEDS ORDERED: METHADONE HCL 5 MG TABLET (FOR DETOX USE ONLY) ONE (09:14)
[2019-07-29] MEDS ORDERED: METHADONE HCL 10 MG TABLET (FOR DETOX USE ONLY) ONE (09:14)
[2019-07-29] MEDS ORDERED: PRENATAL VITAMINS W/ FOLIC ACID TABLET (FP) PO SCH (10:00)
[2019-07-29] MEDS ORDERED: METHADONE (DETOX) 20 MG, METHADONE (DETOX) 5 MG PO ONE (10:00)
--- NOTE | 2019-07-29 10:46 | PN ---
[facility] COWS - Scale Resting Pulse: 0= [place] 80 or Below Sweatin= No chills or Flushing Restless Observation: 1= Difficult to Sit Still Pupil Size: 1= Pupils >than Normal Bone or Joint Aches: 1= Mild Discomfort Runny Nose/ Eye Tearin= Nasal Congestion GI Upset > 30mins: 2= Nausea/Diarrhea Tremor Observation of Outstretched Hands: 1= Tremor [place], Not Seen Yawning Observation: 1= 1-2x During Session Anxiety or Irritability: 2=Irritable/Anxious Goose Flesh Skin: 0=Smooth Skin COWS Score: 10 S Progress Note (SOAP) Subjective: alert,irritable,anxious,interrupted sleep,pain in the body and back Objective: 07/29/19 10:40 Vital Signs Temperature 98.2 F 07/29/19 09:26 Pulse Rate 66 07/29/19 09:26 Respiratory Rate 18 07/29/19 09:26 Blood Pressure 133/62 07/29/19 09:26 O2 Sat by Pulse Oximetry (%) 07/29/19 10:43 patient refused to have blood drawn today but agree to have blood drawn tomorrow Assessment: 07/29/19 10:46 withdrawal symptom Plan: continue detox methadone regimen
[2019-07-29] MEDS ORDERED: diazePAM 5 MG TABLET PO PRN (10:48)
[2019-07-29 12:58] VITALS: BP 136/84; PULSE 50; TEMP 99.9
--- NOTE | 2019-07-29 13:11 | PN ---
[facility] Progress Note Note: informed by nurse patient did not want to continue treatment discussed with patient and all attempts to convince patient to stay with no avail, the risk of relapsing is high,patient understood patient signed release ama advise to call 911 if not feeling well
--- NOTE | 2019-07-29 13:16 | DS ---
[facility] Detox Discharge Summary Admission Date: 07/28/19 Discharge Date: 07/29/19 - History Present History: Opioid Dependence, Sedative Dependence Additional Comments: patient signed release ama - Physical Exam Results Vital Signs: Vital Signs Temperature 99.9 F H 07/29/19 12:57 Pulse Rate 50 L 07/29/19 12:57 Respiratory Rate 18 07/29/19 12:57 Blood Pressure 136/84 07/29/19 12:57 O2 Sat by Pulse Oximetry (%) Pertinent Admission Physical Exam Findings: withdrawal sign and symptom Vital Signs Temperature 99.9 F H 07/29/19 12:57 Pulse Rate 50 L 07/29/19 12:57 Respiratory Rate 18 07/29/19 12:57 Blood Pressure 136/84 07/29/19 12:57 O2 Sat by Pulse Oximetry (%) - Medication Discharge Medications: Ambulatory Orders NK [No Known Home Medication] 06/03/18 - Diagnosis (1) Opioid dependence with withdrawal Current Visit: No Status: Acute (2) Nicotine dependence Current Visit: No Status: Acute Qualifiers: Nicotine product type: cigarettes Substance use status: in withdrawal Qualified Code(s): F17.213 - Nicotine dependence, cigarettes, with withdrawal (3) IVDU (intravenous drug user) Current Visit: No Status: Chronic - AMA Did Patient Leave Against Medical Advice: Yes
[2019-07-30] MEDS ORDERED: METHADONE HCL 10 MG TABLET (FOR DETOX USE ONLY) PO ONE (10:00)
[2019-07-31] MEDS ORDERED: METHADONE (DETOX) 10 MG, METHADONE (DETOX) 5 MG PO ONE (10:00)
[2019-08-01] MEDS ORDERED: METHADONE HCL 10 MG TABLET (FOR DETOX USE ONLY) PO ONE (10:00)
[2019-08-02] MEDS ORDERED: METHADONE HCL 5 MG TABLET (FOR DETOX USE ONLY) PO ONE (06:00)
== END 2019-07-29 13:33 | disposition home or self-care (01) | DRG 773 ==
LOC: YASAS 15:14 → Y6N 18:19
PROVIDERS: ADMIT Allergy & Immunology; ATTEND Allergy & Immunology
PROC: HZ2ZZZZ Detoxification Services for Substance Abuse Treatment (ICD-10-PCS; principal; 2019-07-28)
DX: F11.23 Opioid dependence with withdrawal (principal); F13.230 Sedative, hypnotic or anxiolytic dependence with withdrawal, uncomplicated; F17.213 Nicotine dependence, cigarettes, with withdrawal; F32.9 Major depressive disorder, single episode, unspecified; Z91.013 Allergy to seafood

== ENCOUNTER 2019-08-10 10:16 | Inpatient (IN) | payer SELFPAY ==
[2019-08-10 10:22] VITALS: BMI 25.6
--- NOTE | 2019-08-10 10:35 | HP ---
COWS - Scale Sweatin= Chills/Flushing Restless Observation: 1= Difficult to Sit Still Pupil Size: 1= Pupils >than Normal Bone or Joint Aches: 2= Severe Diffuse Aches Runny Nose/ Eye Tearin= Runny Nose/Eyes GI Upset > 30mins: 2= Nausea/Diarrhea Tremor Observation: 1= Tremor [place], Not Seen Yawning Observation: 0= None Anxiety or Irritability: 2=Irritable/Anxious Goose Flesh Skin: 3=Piloerection CIWA Score - Admission Criteria OASAS Guidelines: Admission for Medically Managed Detox: Requires at least one of the followin. CIWA greater than 12 2. Seizures within the past 24 hours 3. Delirium tremens within the past 24 hours 4. Hallucinations within the past 24 hours 5. Acute intervention needed for co occurring medical disorder 6. Acute intervention needed for co occurring psychiatric disorder 7. Severe withdrawal that cannot be handled at a lower level of care (continued vomiting, continued diarrhea, abnormal vital signs) requiring intravenous medication and/or fluids 8. Admitting History and Physical - Admission History of Present Illness: 43 yo with long h/o OUD. Here for detox. Was in a methadone MAT left 2002. Was getting Vivitrol- stopped after 2 months. After he finishes detox here he has a bed waiting at [facility].He also has benzodiazepine use disorder. He did have seizures two days ago from withdrawing from benzodiazepines. no meds, no PCP, living in [place]. Works as [employer]. He is smoking ciggarettes per day. He is using heroin intravenously 15 bags per day, last use was on 08/09/19. He does admit to having bought some methadone on the streets on days he could not get any heroin. Denies any overdoses recently,or use of narcan. He did have an overdose 1 year ago. Heroin- 15 bags/day, IH, last OD- last year. Instructed how to get a narcan kit. PMH: None Psurg: Tonsillectomy as a child Psych: None Patient denies any legal issues pending. Patient is domiciled and has family support systems. History Source: Patient Limitations to Obtaining History: No Limitations - Past Surgical History Past Surgical History: Yes: Tonsillectomy - Advance Directives Advance Directives: No: Living Will, Health Care Proxy, DNR - Smoking History Smoking history: Current every day smoker Have you smoked in the past 12 months: Yes Aproximately how many cigarettes per day: 20 - Alcohol/Substance Use Hx Alcohol Use: No History of Substance Use: reports: Heroin Date of Last Use: 08/09/19 - Social History Usual Living Arrangement: Yes: Alone Do you think of yourself as: Straight/Heterosexual ADL: Independent Occupation: n[employer], unemployed History of Recent Travel: No Admission [facility] Allergies/Adverse Reactions: Allergies Allergy/AdvReac Type Severity Reaction Status Date / Time fish derived Allergy Mild Hives Verified 08/10/19 10:13 shellfish derived Allergy Mild Hives Verified 08/10/19 10:13 seafood Allergy Mild Hives Uncoded 08/10/19 10:13 - Ebola screening Have you traveled outside of the country in the last 21 days: No Have you had contact with anyone from an Ebola affected area: No Have you been sick,other than usual withdrawal symptoms: No Do you have a fever: No - Review of Systems Constitutional: Chills, Loss of Appetite, Night Sweats, Unintentional Wgt. Loss EENT: reports: No Symptoms Reported Respiratory: reports: No Symptoms reported Cardiac: reports: No Symptoms Reported GI: reports: Nausea, Abdominal cramping : reports: No Symptoms Reported Musculoskeletal: reports: No Symptoms Reported Integumentary: reports: No Symptoms Reported Neuro: reports: No Symptoms reported Endocrine: reports: No Symptoms Reported Hematology: reports: No Symptoms Reported Psychiatric: reports: Judgement Intact, Orientated x3, Agitated, Anxious Other Systems: Reviewed and Negative Patient History - Patient Medical History Hx Anemia: No Hx Asthma: No Hx Chronic Obstructive Pulmonary Disease (COPD): No Hx Cancer: No Hx Cardiac Disorders: No Hx Congestive Heart Failure: No Hx Hypertension: No Hx Hypercholesterolemia: No Hx Pacemaker: No HX Cerebrovascular Accident: No Hx Seizures: No Hx Dementia: No Hx Diabetes: No Hx Gastrointestinal Disorders: No Hx Liver Disease: No Hx Genitourinary Disorders: No Hx Sexually Transmitted Disorders: No Hx Renal Disease (ESRD): No Hx Thyroid Disease: No Hx Human Immunodeficiency Virus (HIV): No Hx Hepatitis C: No Hx Depression: No Hx Suicide Attempt: No Hx Bipolar Disorder: No Hx Schizophrenia: No - Patient Surgical History Past Surgical History: Yes Hx Neurologic Surgery: No Hx Cataract Extraction: No Hx Cardiac Surgery: No Hx Lung Surgery: No Hx Breast Surgery: No Hx Breast Biopsy: No Hx Abdominal Surgery: No Hx Appendectomy: No Hx Cholecystectomy: No Hx Genitourinary Surgery: No Hx Section: No Hx Orthopedic Surgery: No Other Surgical History: TONSILECTOMY Anesthesia Reaction: No - PPD History Previous Implant?: Yes Documented Results: Negative w/proof Implanted On Prior [facility] Admission?: Yes Date: 10/06/18 Results: negative PPD to be Administered?: No - Smoking Cessation Smoking history: Current every day smoker Have you smoked in the past 12 months: Yes Aproximately how many cigarettes per day: 20 Hx Chewing Tobacco Use: No Initiated information on smoking cessation: Yes 'Breaking Loose' booklet given: 08/10/19 - Substance & Tx. History Hx Alcohol Use: No Hx Substance Use: Yes Substance Use Type: Heroin Hx Substance Use Treatment: Yes - Substances abused Heroin Other (specify): fentanyl Substance route: Injection Frequency: Daily Amount used: 15 BAGS Age of first use: 34 Date of last use: 08/09/19 Alprazolam (Xanax) Substance route: Oral Frequency: Daily Amount used: 15mg Age of first use: 34 Date of last use: 08/07/19 Admission Physical Exam BHS - Vital Signs Vital Signs: Vital Signs - 24 hr 08/10/19 10:19 Temperature 98.2 F Pulse Rate 99 H Respiratory 18 Rate Blood Pressure 142/103 H - Physical General Appearance: Yes: Moderate Distress, Tremorous, Irritable, Sweating, Anxious HEENTM: Yes: EOMI, Hearing grossly Normal, Normal ENT Inspection, Normocephalic , Normal Voice, CAR, Pharynx Normal, Tm's normal Respiratory: Yes: Chest Non-Tender, Lungs Clear, Normal Breath Sounds, No Respiratory Distress, No Accessory Muscle Use Neck: Yes: No masses,lesions,Nodules, Supple, Trachea in good position Breast: Yes: Within Normal Limits Cardiology: Yes: Regular Rhythm, S1, S2, Tachycardia Abdominal: Yes: Normal Bowel Sounds, Non Tender, Flat, Soft Genitourinary: Yes: Within Normal Limits Back: Yes: Normal Inspection Extremities: Yes: Normal Capillary Refill, Normal Inspection, Normal Range of Motion, Non-Tender Neurological: 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: 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 security 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 NML intact, Fully Oriented, Alert, Motor Strength 5/5, Normal Mood/Affect, Normal Response Integumentary: Yes: Within Normal Limits Lymphatic: Yes: Within Normal Limits - Diagnostic (1) Nicotine dependence Current Visit: Yes Status: Acute Qualifiers: Nicotine product type: cigarettes Substance use status: in withdrawal Qualified Code(s): F17.213 - Nicotine dependence, cigarettes, with withdrawal (2) Opioid dependence with withdrawal Current Visit: Yes Status: Acute (3) IVDU (intravenous drug user) Current Visit: Yes Status: Chronic Cleared for Admission [facility] - Detox or Rehab [facility] Level of Care: Medically Managed Detox Regimen/Protocol: Methadone Claeared for Rehab Admission: No Screened but not Admitted - Documentation of Visit Screened but not Admitted: No Breathalyzer - Breathalyzer Breathalyzer: 0 Urine Drug Screen - Test Device Lot number: [id number] Expiration date: 03/08/21 - Control Is test valid?: Yes - Results Drug screen NEGATIVE: No Urine drug screen results: FEN-Fentanyl, MOP-Opiates, MTD-Methadone Inpatient Rehab Admission - Rehab Decision to Admit Inpatient rehab admission?: No
[2019-08-10] MEDS ORDERED: MAGNESIUM CITRATE 300 ML BOTTLE PO PRN (10:44)
[2019-08-10] MEDS ORDERED: MELATONIN 5 MG TABLETS PO PRN (10:44)
[2019-08-10] MEDS ORDERED: METHOCARBAMOL 500 MG TABLET PO PRN (10:44)
[2019-08-10] MEDS ORDERED: BISMUTH SUBSALICYLATE 262 MG/15 ML BTL PO PRN (10:44)
[2019-08-10] MEDS ORDERED: IBUPROFEN 400 MG TABLET (FP) PO PRN (10:44)
[2019-08-10] MEDS ORDERED: MENTHOL/PHENOL 1 EACH UD MM PRN (10:44)
[2019-08-10] MEDS ORDERED: hydrOXYzine PAMOATE 25 MG CAPSULE (FP) PO PRN (10:44)
[2019-08-10] MEDS ORDERED: MAG HYDROX/AL HYDROX/SIMETH 30 ML UNIT-DOSE CUP PO PRN (10:44)
[2019-08-10] MEDS ORDERED: cloNIDine HCL 0.1 MG TABLET PO PRN (10:44)
[2019-08-10] MEDS ORDERED: ACETAMINOPHEN 325 MG TABLET (FP) PO PRN ×2 (10:44)
[2019-08-10] MEDS ORDERED: MAGNESIUM HYDROX 2400MG/30ML ORAL SUSPENSION 30 ML CUP PO PRN (10:44)
[2019-08-10] MEDS ORDERED: METHADONE HCL 10 MG TABLET (FOR DETOX USE ONLY) PO ONE (12:00)
[2019-08-10 15:35] LABS: ALBUMIN 4.2 g/dl (3.4-5.0); BILIRUBIN,TOTAL 0.3 mg/dL (0.2-1); BLOOD UREA NITROGEN 22.4 mg/dL (7-18); CALCIUM 8.6 mg/dL (8.5-10.1); POTASSIUM 3.9 mmol/L (3.5-5.1); TOT PROT 7.2 g/dl (6.4-8.2)
[2019-08-10 15:37] LABS: HEMATOCRIT 46.6 % (35.4-49); HEMOGLOBIN 15.6 GM/dL (11.7-16.9); MCH 31.4 pg (25.7-33.7); MCHC 33.5 g/dl (32.0-35.9); MEAN CELL VOLUME 93.6 fl (80-96); MEAN PLT VOLUME 7.7 fl (7.5-11.1); PLATELET COUNT 275 K/MM3 (134-434); RBC 4.98 M/mm3 (4.00-5.60); RDW 13.3 % (11.9-15.9); WHITE BLOOD COUNT 9.7 K/mm3 (4.0-10.0)
[2019-08-10] MEDS ORDERED: THIAMINE HCL 100 MG TABLET (FP) PO SCH (22:00)
[2019-08-11 09:16] VITALS: BP 122/77; PULSE 69; TEMP 97.9
[2019-08-11] MEDS ORDERED: METHADONE (DETOX) 20 MG, METHADONE (DETOX) 5 MG PO ONE (10:00)
[2019-08-11] MEDS ORDERED: NICOTINE 14 MG/24 HOURS TOPICAL PATCH TD SCH (10:00)
[2019-08-11] MEDS ORDERED: PRENATAL VITAMINS W/ FOLIC ACID TABLET (FP) PO SCH (10:00)
--- NOTE | 2019-08-11 12:23 | DS ---
[facility] Detox Discharge Summary Admission Date: 08/10/19 Discharge Date: 08/11/19 - History Present History: Opioid Dependence Additional Comments: 43 years old male admitted on 08/10/19 for opiate withdrawal sx management treated with methadone detox regimen patient is alert oriented x 3 patient insists to leave the detox unit that methadone dosage is lowering discuss medication assisted treatment program patient insists to leave refuses cows refuses discharge physical examination Pertinent Past History: patient prefers to leave the detox unit case discussed with the nurse that against medical advice is appropriated 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 will be informed by the nurse - Physical Exam Results Vital Signs: Vital Signs Temperature 97.9 F 08/11/19 09:00 Pulse Rate 69 08/11/19 09:00 Respiratory Rate 18 08/11/19 09:00 Blood Pressure 122/77 08/11/19 09:00 O2 Sat by Pulse Oximetry (%) Pertinent Admission Physical Exam Findings: opiate withdrawal sx Laboratory Last Values WBC 9.7 K/mm3 (4.0-10.0) 08/10/19 11:00 RBC 4.98 M/mm3 (4.00-5.60) 08/10/19 11:00 Hgb 15.6 GM/dL (11.7-16.9) 08/10/19 11:00 Hct 46.6 % (35.4-49) 08/10/19 11:00 MCV 93.6 fl (80-96) 08/10/19 11:00 MCH 31.4 pg (25.7-33.7) 08/10/19 11:00 MCHC 33.5 g/dl (32.0-35.9) 08/10/19 11:00 RDW 13.3 % (11.9-15.9) 08/10/19 11:00 Plt Count 275 K/MM3 (134-434) 08/10/19 11:00 MPV 7.7 fl (7.5-11.1) 08/10/19 11:00 Sodium 142 mmol/L (136-145) 08/10/19 11:00 Potassium 3.9 mmol/L (3.5-5.1) 08/10/19 11:00 Chloride 108 mmol/L (98-107) H 08/10/19 11:00 Carbon Dioxide 27 mmol/L (21-32) 08/10/19 11:00 Anion Gap 7 MMOL/L (8-16) L 08/10/19 11:00 BUN 22.4 mg/dL (7-18) H 08/10/19 11:00 Creatinine 1.0 mg/dL (0.55-1.3) 08/10/19 11:00 Est GFR (CKD-EPI)AfAm 105.62 08/10/19 11:00 Est GFR (CKD-EPI)NonAf 91.13 08/10/19 11:00 Random Glucose 128 mg/dL (74-106) H 08/10/19 11:00 Calcium 8.6 mg/dL (8.5-10.1) 08/10/19 11:00 Total Bilirubin 0.3 mg/dL (0.2-1) 08/10/19 11:00 AST 19 U/L (15-37) 08/10/19 11:00 ALT 22 U/L (13-61) 08/10/19 11:00 Alkaline Phosphatase 89 U/L (45-117) 08/10/19 11:00 Total Protein 7.2 g/dl (6.4-8.2) 08/10/19 11:00 Albumin 4.2 g/dl (3.4-5.0) 08/10/19 11:00 lab noted - Treatment Hospital Course: Detox Protocol Followed, Responded well Patient has Accepted a Rehab Referral to: [facility] - Medication Discharge Medications: Ambulatory Orders Naloxone HCl [Narcan] 4 mg NS ASDIR PRN #1 spray 08/11/19 - Diagnosis (1) Nicotine dependence Status: Acute Qualifiers: Nicotine product type: cigarettes Substance use status: in withdrawal Qualified Code(s): F17.213 - Nicotine dependence, cigarettes, with withdrawal (2) Opioid dependence with withdrawal Status: Acute (3) Substance induced mood disorder Status: Suspected - AMA Did Patient Leave Against Medical Advice: Yes
[2019-08-12] MEDS ORDERED: METHADONE HCL 10 MG TABLET (FOR DETOX USE ONLY) PO ONE (10:00)
[2019-08-13] MEDS ORDERED: METHADONE (DETOX) 10 MG, METHADONE (DETOX) 5 MG PO ONE (10:00)
[2019-08-14] MEDS ORDERED: METHADONE HCL 10 MG TABLET (FOR DETOX USE ONLY) PO ONE (10:00)
[2019-08-15] MEDS ORDERED: METHADONE HCL 5 MG TABLET (FOR DETOX USE ONLY) PO ONE (06:00)
== END 2019-08-11 09:10 | disposition left against medical advice (07) | DRG 770 ==
LOC: YASAS 10:16 → Y3N 11:10
PROVIDERS: ADMIT Allergy & Immunology; ATTEND Allergy & Immunology
PROC: HZ2ZZZZ Detoxification Services for Substance Abuse Treatment (ICD-10-PCS; principal; 2019-08-10)
DX: F11.23 Opioid dependence with withdrawal (principal); F13.230 Sedative, hypnotic or anxiolytic dependence with withdrawal, uncomplicated; F19.24 Other psychoactive substance dependence with psychoactive substance-induced mood disorder; G40.509 Epileptic seizures related to external causes, not intractable, without status epilepticus; Z91.013 Allergy to seafood
CPT/HCPCS: 36415; 80053; 85027; 86593

== ENCOUNTER 2019-10-10 14:18 | Inpatient (IN) | payer SELFPAY ==
[2019-10-10 17:46] VITALS: BMI 23.8
--- NOTE | 2019-10-10 18:39 | HP ---
COWS - Scale Resting Pulse: 0= RI 80 or Below Sweatin= Chills/Flushing Restless Observation: 3= Extraneous Movement Pupil Size: 0= Normal to Room Light Bone or Joint Aches: 2= Severe Diffuse Aches Runny Nose/ Eye Tearin= Runny Nose/Eyes GI Upset > 30mins: 1= Stomach Cramp Tremor Observation: 0= None Yawning Observation: 2= >3x During Session Anxiety or Irritability: 2=Irritable/Anxious Goose Flesh Skin: 0=Smooth Skin COWS Score: 13 CIWA Score Nausea/Vomitin-Mild Nausea/No Vomiting Muscle Tremors: None Anxiety: 3 Agitation: 4-Moderately Restless Paroxysmal Sweats: 2 Orientation: 0-Oriented Tacttile Disturbances: 0-None Auditory Disturbances: 0-None Visual Disturbances: 0-None Headache: 0-None Present CIWA-Ar Total Score: 10 - Admission Criteria OASAS Guidelines: Admission for Medically Managed Detox: Requires at least one of the followin. CIWA greater than 12 2. Seizures within the past 24 hours 3. Delirium tremens within the past 24 hours 4. Hallucinations within the past 24 hours 5. Acute intervention needed for co occurring medical disorder 6. Acute intervention needed for co occurring psychiatric disorder 7. Severe withdrawal that cannot be handled at a lower level of care (continued vomiting, continued diarrhea, abnormal vital signs) requiring intravenous medication and/or fluids 8. 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 History of Recent Travel: No Admission ROS [facility] Allergies/Adverse Reactions: Allergies Allergy/AdvReac Type Severity Reaction Status Date / Time fish derived Allergy Mild Hives Verified 10/10/19 17:37 shellfish derived Allergy Mild Hives Verified 10/10/19 17:37 seafood Allergy Mild Hives Uncoded 10/10/19 17:37 History of Present Illness: This report was requested by: Meka Polanco | Reference #: [id number] Others' Prescriptions Patient Name: Benito Coates Date: 1975 Address: [address] [place] [id number] Sex: Male Rx Written Rx Dispensed Drug Quantity Days Supply Prescriber Name 03/06/2019 03/06/2019 chlordiazepoxide 25 mg capsule 26 5 O' Vannesa Villanueva Patient Name: Benito Coates Date: 1975 Address: [address] [place] [id number] Sex: Male Rx Written Rx Dispensed Drug Quantity Days Supply Prescriber Name 01/31/2019 02/04/2019 diazepam 5 mg tablet 6 3 Reji Choudhuyr W pt here requesting detox from opiate use , reports 15 bags fentanyl, latest use today IV , OD 1 yr ago , denies abscess . prior MMMTP " years ago " MDD 190 mg xanax - 2 days ago , seizure 2 mo ago tobacco : 1 ppd PMHX /PSHX : denies psych : denies Exam Limitations: Clinical Condition - Review of Systems Constitutional: Loss of Appetite EENT: reports: No Symptoms Reported (denies dysphagia) Respiratory: reports: No Symptoms reported Cardiac: reports: No Symptoms Reported GI: reports: Poor Appetite, Abdominal cramping : reports: No Symptoms Reported Musculoskeletal: reports: See HPI, Muscle Pain Integumentary: reports: See HPI Neuro: reports: No Symptoms reported Endocrine: reports: No Symptoms Reported Psychiatric: reports: Orientated x3, Agitated, Anxious Patient History - Patient Medical History Hx Anemia: No Hx Asthma: Yes Hx Chronic Obstructive Pulmonary Disease (COPD): No Hx Cancer: No Hx Cardiac Disorders: No Hx Congestive Heart Failure: No Hx Hypertension: No Hx Hypercholesterolemia: No Hx Pacemaker: No HX Cerebrovascular Accident: No Hx Seizures: Yes (withdrawal related last 2 days ago) Hx Dementia: No Hx Diabetes: No Hx Gastrointestinal Disorders: No Hx Liver Disease: No Hx Genitourinary Disorders: No Hx Sexually Transmitted Disorders: No Hx Renal Disease (ESRD): No Hx Thyroid Disease: No Hx Human Immunodeficiency Virus (HIV): No Hx Hepatitis C: No Hx Depression: No Hx Suicide Attempt: No Hx Bipolar Disorder: No Hx Schizophrenia: No - Patient Surgical History Past Surgical History: Yes Hx Neurologic Surgery: No Hx Cataract Extraction: No Hx Cardiac Surgery: No Hx Lung Surgery: No Hx Breast Surgery: No Hx Breast Biopsy: No Hx Abdominal Surgery: No Hx Appendectomy: No Hx Cholecystectomy: No Hx Genitourinary Surgery: No Hx Section: No Hx Orthopedic Surgery: No Other Surgical History: TONSILECTOMY Anesthesia Reaction: No - PPD History Date: 10/06/18 Results: negative - Smoking Cessation Smoking history: Current every day smoker Have you smoked in the past 12 months: Yes Aproximately how many cigarettes per day: 20 Hx Chewing Tobacco Use: No Initiated information on smoking cessation: Yes 'Breaking Loose' booklet given: 10/10/19 - Substances abused Other Other (specify): Fentanyl Substance route: Injection Frequency: Daily Amount used: 15 bags Age of first use: 37 Date of last use: 10/10/19 Alprazolam (Xanax) Substance route: Oral Frequency: 3-6 times per week Amount used: 15 mg Age of first use: 34 Date of last use: 10/08/19 Admission Physical Exam BHS - Vital Signs Vital Signs: Vital Signs - 24 hr 10/10/19 10/10/19 17:37 18:03 Temperature 97.9 F 97.9 F Pulse Rate 76 76 Respiratory 14 14 Rate Blood Pressure 118/75 118/75 - Physical General Appearance: Yes: Moderate Distress, Irritable, Anxious HEENTM: Yes: EOMI, Hearing grossly Normal, Normocephalic, Normal Voice, Other ( poor dentition , many missing teeth) Respiratory: Yes: Lungs Clear, Normal Breath Sounds, No Respiratory Distress, No Accessory Muscle Use Neck: Yes: No masses,lesions,Nodules, Trachea in good position Cardiology: Yes: Regular Rhythm, Regular Rate, S1, S2 Abdominal: Yes: Non Tender, Soft Musculoskeletal: Yes: Gait Steady Extremities: Yes: Normal Capillary Refill, Normal Inspection, Normal Range of Motion, Non-Tender Neurological: Yes: Fully Oriented, Alert, Motor Strength 5/5, Depressed Affect Integumentary: Yes: Warm, Track Conroy (tere forearms, c/d/i) - Diagnostic (1) Nicotine dependence Current Visit: Yes Status: Chronic Qualifiers: Nicotine product type: cigarettes (2) Opioid dependence with withdrawal Current Visit: Yes Status: Chronic Breathalyzer - Breathalyzer Breathalyzer: 0 Urine Drug Screen - Test Device Lot number: [id number] Expiration date: 08/03/21 - Control Is test valid?: Yes - Results Drug screen NEGATIVE: No Urine drug screen results: FEN-Fentanyl, MOP-Opiates Inpatient Rehab Admission - Rehab Decision to Admit Inpatient rehab admission?: No
[2019-10-10] MEDS ORDERED: MAG HYDROX/AL HYDROX/SIMETH 30 ML UNIT-DOSE CUP PO PRN (18:49)
[2019-10-10] MEDS ORDERED: DICYCLOMINE HCL 10 MG CAPSULE PO PRN (18:49)
[2019-10-10] MEDS ORDERED: BISMUTH SUBSALICYLATE 524 MG/30 ML UD PO PRN (18:49)
[2019-10-10] MEDS ORDERED: MAGNESIUM HYDROX 2400MG/30ML ORAL SUSPENSION 30 ML CUP PO PRN (18:49)
[2019-10-10] MEDS ORDERED: METHOCARBAMOL 500 MG TABLET PO PRN (18:49)
[2019-10-10] MEDS ORDERED: P-EPHED 60MG/TRIPROLIDI 2.5MG TABLET PO PRN (18:49)
[2019-10-10] MEDS ORDERED: hydrOXYzine PAMOATE 25 MG CAPSULE (FP) PO PRN (18:49)
[2019-10-10] MEDS ORDERED: MENTHOL/PHENOL 1 EACH UD MM PRN (18:49)
[2019-10-10] MEDS ORDERED: IBUPROFEN 400 MG TABLET (FP) PO PRN (18:49)
[2019-10-10] MEDS ORDERED: MAGNESIUM CITRATE 300 ML BOTTLE PO PRN (18:49)
[2019-10-10] MEDS ORDERED: ACETAMINOPHEN 325 MG TABLET (FP) PO PRN ×2 (18:49)
[2019-10-10] MEDS ORDERED: cloNIDine HCL 0.1 MG TABLET PO PRN (18:51)
[2019-10-10] MEDS ORDERED: METHADONE HCL 10 MG TABLET (FOR DETOX USE ONLY) PO ONE (19:30)
[2019-10-10] MEDS: clonazePAM 0.5 MG TABLET PO PRN (19:56)
[2019-10-10] MEDS ORDERED: THIAMINE HCL 100 MG TABLET (FP) PO SCH (22:00)
[2019-10-10] MEDS ORDERED: MELATONIN 5 MG TABLETS PO PRN (22:00)
[2019-10-11] MEDS ORDERED: METHADONE HCL 5 MG TABLET (FOR DETOX USE ONLY) ONE (08:46)
[2019-10-11] MEDS ORDERED: METHADONE HCL 10 MG TABLET (FOR DETOX USE ONLY) ONE (08:46)
[2019-10-11] MEDS: clonazePAM 0.5 MG TABLET PO PRN (09:04)
[2019-10-11 09:54] VITALS: BP 107/67; PULSE 74; TEMP 99.5
[2019-10-11] MEDS ORDERED: PRENATAL VITAMINS W/ FOLIC ACID TABLET (FP) PO SCH (10:00)
[2019-10-11] MEDS ORDERED: METHADONE (DETOX) 20 MG, METHADONE (DETOX) 5 MG PO ONE (10:00)
--- NOTE | 2019-10-11 20:39 | DS ---
[facility] Detox Discharge Summary Admission Date: 10/10/19 - History Present History: Cocaine Dependence, Opioid Dependence - Physical Exam Results Vital Signs: Vital Signs Temperature 99.5 F 10/11/19 09:53 Pulse Rate 74 10/11/19 09:53 Respiratory Rate 16 10/11/19 09:53 Blood Pressure 107/67 10/11/19 09:53 O2 Sat by Pulse Oximetry (%) ROS: ANXIOUS, IRRITABLE, SWEATING PE ALERT AND ORIENTED SKIN WARM, +FACIAL FLUSHING ANXIOUS AND IRRITABLE EXAM LIMITED PATIENT EVALUATED DURING MORNING ROUNDS, ACTIVELY IN WITHDRAWAL WITH COW SCORE OF 12. PATIENT NOTIFIED PROVIDER AND STAFF, AFTER ROUNDS THAT HE WANTED TO SIGN OUT AMA. PATIENT ENCOURAGED TO STAY IN TREATMENT AND EXPLAINED RISK FACTORS OF RELAPSE AND POSSIBLE OD/ WITH SIGNING OUT. PATIENT REFUSED TO STAY DESPITE INTERVENTIONS. - Medication Discharge Medications: Ambulatory Orders NK [No Known Home Medication] 10/10/19 - AMA Did Patient Leave Against Medical Advice: Yes (REFUSED NARCAN KIT)
[2019-10-12] MEDS ORDERED: METHADONE HCL 10 MG TABLET (FOR DETOX USE ONLY) PO ONE (10:00)
[2019-10-13] MEDS ORDERED: METHADONE (DETOX) 10 MG, METHADONE (DETOX) 5 MG PO ONE (10:00)
[2019-10-14] MEDS ORDERED: METHADONE HCL 10 MG TABLET (FOR DETOX USE ONLY) PO ONE (10:00)
[2019-10-15] MEDS ORDERED: METHADONE HCL 5 MG TABLET (FOR DETOX USE ONLY) PO ONE (06:00)
== END 2019-10-11 11:30 | disposition left against medical advice (07) | DRG 770 ==
LOC: YASAS 14:18 → Y6N 19:18
PROVIDERS: ADMIT Allergy & Immunology; ATTEND Allergy & Immunology
PROC: HZ2ZZZZ Detoxification Services for Substance Abuse Treatment (ICD-10-PCS; principal; 2019-10-10)
DX: F11.23 Opioid dependence with withdrawal (principal); F14.20 Cocaine dependence, uncomplicated; F13.20 Sedative, hypnotic or anxiolytic dependence, uncomplicated; F17.210 Nicotine dependence, cigarettes, uncomplicated; G40.509 Epileptic seizures related to external causes, not intractable, without status epilepticus; J45.909 Unspecified asthma, uncomplicated; Z91.013 Allergy to seafood

== ENCOUNTER 2020-04-04 18:25 | Inpatient (IN) | payer OTHER ==
--- NOTE | 2020-04-04 19:27 | BHS.RME ---
Substance Use & Tx History - Substance Use History Heroin Substance amount: 8 bags Frequency of use: Daily Substance route: Injection (ex: intravenous or skin popping) Date of Last Use: 04/04/20 (11 am) Benzodiazepines Substance amount: 2x 5mg bars Frequency of use: Daily Substance route: Oral Date of Last Use: 04/03/20 (yesterday evening) Nicotine Substance amount: half pack per day Frequency of use: Daily Substance route: Smoking Date of Last Use: 04/04/20 Fentanyl Substance amount: 8 bags - combined with heroin Frequency of use: Daily Substance route: Injection (ex: intravenous or skin popping) Date of Last Use: 04/04/20 (11am) - Last Treatment Date of last treatment: 10/10/19 Treatment type: Substance Use Disorder (PARISH) (Patient was admitted to [facility] 10/10/19) Physical/Psych/Mental Status - Behavior General Behavior: Decreased activity Eye Contact: Decreased - Cooperativeness Cooperativeness: Cooperative - Thinking Thought Processes: Tight, Logical Thought content: Future oriented - Physical Health Problems Is patient presently having any pain?: Yes (body aches ) Does patient presently have any injuries (include location): No Does patient currently have a fever: No Is patient : No COWS - Scale Resting Pulse: 2= [place] 101-120 Sweatin=Flushed/Facial Moisture Restless Observation: 0= Sits Still Pupil Size: 0= Normal to Room Light Bone or Joint Aches: 1= Mild Discomfort Runny Nose/ Eye Tearin= Runny Nose/Eyes GI Upset > 30mins: 3= Vomiting/Diarrhea Tremor Observation: 2= Slight Tremor Visible Yawning Observation: 0= None Anxiety or Irritability: 1=Feels Anxious/Irritable Goose Flesh Skin: 3=Piloerection COWS Score: 16 Treatment Recommendation - Level of Care Level of Care: [facility]
[2020-04-04] MEDS ORDERED: METHADONE HCL 10 MG TABLET (FOR DETOX USE ONLY) PO ONE ×3 (19:58→21:45)
[2020-04-04] MEDS ORDERED: ACETAMINOPHEN 325 MG TABLET (FP) PO PRN ×2 (19:58)
[2020-04-04] MEDS ORDERED: ONDANSETRON *ODT* 4 MG TABLET SL ONE (19:58)
[2020-04-04] MEDS ORDERED: BISMUTH SUBSALICYLATE 524 MG/30 ML UD PO PRN (19:58)
[2020-04-04] MEDS ORDERED: IBUPROFEN 400 MG TABLET (FP) PO PRN (19:58)
[2020-04-04] MEDS ORDERED: MENTHOL/PHENOL 1 EACH UD MM PRN (19:58)
[2020-04-04] MEDS ORDERED: NICOTINE POLACRILEX 2 MG GUM BUC PRN (19:58)
[2020-04-04] MEDS ORDERED: MAG HYDROX/AL HYDROX/SIMETH 30 ML UNIT-DOSE CUP PO PRN (19:58)
[2020-04-04] MEDS ORDERED: MAGNESIUM HYDROX 2400MG/30ML ORAL SUSPENSION 30 ML CUP PO PRN (19:58)
[2020-04-04] MEDS ORDERED: cloNIDine HCL 0.1 MG TABLET PO PRN ×2 (19:58→20:26)
[2020-04-04] MEDS ORDERED: MAGNESIUM CITRATE 300 ML BOTTLE PO PRN (19:58)
--- NOTE | 2020-04-04 19:58 | HP ---
COWS - Scale Resting Pulse: 2= [place] 101-120 Sweatin=Flushed/Facial Moisture Restless Observation: 0= Sits Still Pupil Size: 0= Normal to Room Light Bone or Joint Aches: 1= Mild Discomfort Runny Nose/ Eye Tearin= Runny Nose/Eyes GI Upset > 30mins: 3= Vomiting/Diarrhea Tremor Observation: 2= Slight Tremor Visible Yawning Observation: 0= None Anxiety or Irritability: 1=Feels Anxious/Irritable Goose Flesh Skin: 3=Piloerection COWS Score: 16 CIWA Score - Admission Criteria OASAS Guidelines: Admission for Medically Managed Detox: Requires at least one of the followin. CIWA greater than 12 2. Seizures within the past 24 hours 3. Delirium tremens within the past 24 hours 4. Hallucinations within the past 24 hours 5. Acute intervention needed for co occurring medical disorder 6. Acute intervention needed for co occurring psychiatric disorder 7. Severe withdrawal that cannot be handled at a lower level of care (continued vomiting, continued diarrhea, abnormal vital signs) requiring intravenous medication and/or fluids 8. Admitting History and Physical - Admission Chief Complaint: Patient is a 44 year old male with history of Asthma, IDDM, anxiety, depression, PTSD presents for Opiate detox. 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 denies: Blurred Vision Respiratory: denies: Cough, SOB at Rest Cardiac: denies: Chest Pain, Palpitations GI: reports: Nausea, Vomiting, Abdominal cramping Musculoskeletal: reports: Back Pain, Joint Pain Integumentary: reports: Other (piloerection) Neuro: denies: Headache Patient History - Patient Medical History Hx Anemia: No Hx Asthma: Yes Hx Chronic Obstructive Pulmonary Disease (COPD): No Hx Cancer: No Hx Cardiac Disorders: No Hx Congestive Heart Failure: No Hx Hypertension: No Hx Hypercholesterolemia: No Hx Pacemaker: No HX Cerebrovascular Accident: No Hx Seizures: Yes (withdrawal related last 2 days ago) Hx Dementia: No Hx Diabetes: No Hx Gastrointestinal Disorders: No Hx Liver Disease: No Hx Genitourinary Disorders: No Hx Sexually Transmitted Disorders: No Hx Renal Disease (ESRD): No Hx Thyroid Disease: No Hx Human Immunodeficiency Virus (HIV): No Hx Hepatitis C: No Hx Depression: No Hx Suicide Attempt: No Hx Bipolar Disorder: No Hx Schizophrenia: No - Patient Surgical History Past Surgical History: Yes Hx Neurologic Surgery: No Hx Cataract Extraction: No Hx Cardiac Surgery: No Hx Lung Surgery: No Hx Breast Surgery: No Hx Breast Biopsy: No Hx Abdominal Surgery: No Hx Appendectomy: No Hx Cholecystectomy: No Hx Genitourinary Surgery: No Hx Section: No Hx Orthopedic Surgery: No Other Surgical History: TONSILECTOMY Anesthesia Reaction: No - PPD History Date: 10/06/18 Results: negative - Smoking Cessation Smoking history: Current every day smoker Have you smoked in the past 12 months: Yes Aproximately how many cigarettes per day: 10 Hx Chewing Tobacco Use: No Initiated information on smoking cessation: Yes 'Breaking Loose' booklet given: 04/04/20 Admission Physical Exam S - Vital Signs Vital Signs: Vital Signs - 24 hr 04/04/20 19:36 Temperature 98.8 F Pulse Rate 118 H Respiratory 18 Rate Blood Pressure 130/97 - Physical General Appearance: Yes: Mild Distress, Sweating, Anxious HEENTM: Yes: EOMI, Hearing grossly Normal, Normocephalic, CAR Respiratory: Yes: Lungs Clear, Normal Breath Sounds, No Respiratory Distress, No Accessory Muscle Use Neck: Yes: Supple Cardiology: Yes: Regular Rhythm, Regular Rate, S1, S2 Musculoskeletal: Yes: full range of Motion Extremities: Yes: Normal Range of Motion Neurological: Yes: Alert, Motor Strength 5/5 Integumentary: Yes: Warm, Erythema - Diagnostic (1) Opioid dependence with withdrawal Current Visit: No Status: Chronic Cleared for Admission BHS - Detox or Rehab [facility] Level of Care: Medically Managed Detox Regimen/Protocol: Methadone Breathalyzer - Breathalyzer Breathalyzer: 0 Vital Signs - Vital Signs Vital signs refused: No Temperature: 98.9 F Temperature source: Oral Pulse Rate: 118 Respiratory Rate: 18 Blood Pressure: 130/97 Blood Pressure position: Supine - Height Height: 5 ft 5 in - Weight Weight: 165 g Weight measurement method: Standing scale - BMI Body Mass Index (BMI): 0.0 Urine Drug Screen - Test Device Lot number: [id number] Expiration date: 05/08/21 - Control Is test valid?: Yes - Results Drug screen NEGATIVE: No Urine drug screen results: FEN-Fentanyl, MOP-Opiates, MTD-Methadone, BZO-Benzodiazepines Inpatient Rehab Admission - Rehab Decision to Admit Inpatient rehab admission?: No
--- NOTE | 2020-04-04 20:23 | PN ---
"Teaching Attending Note Name of Resident: Kamaljit Dubose ATTENDING PHYSICIAN STATEMENT I saw and evaluated the patient. I reviewed the resident's note and discussed the case with the resident. I agree with the resident's findings and plan as documented. SUBJECTIVE: 44 y.o. male requesting detox from opiate use , s/p hospitalization @ [facility] since Saturday03/12/2020 2/2 OD , was given 10 mg Methadone this morning , reports using 3 bags of heroin IV since then . Xanax 2mg x 2 bars daily , relapsed one month ago , s/p release from incarceration 02/15/2020 . Incarcerated shortly after d/c from this facility Oct 2019 until February 2020 Sent by parole to inpt detox /rehab . OBJECTIVE: wnwd IVDU tere UE track walsh no abscess, mild erythema left wrist Vital Signs - 24 hr 04/04/20 04/04/20 04/04/20 19:36 20:01 20:03 Temperature 98.8 F 98.8 F 98.9 F Pulse Rate 118 H 118 H 118 H Respiratory 18 18 18 Rate Blood Pressure 130/97 130/97 130/97 This report was requested by: Meka Polanco | Reference #: [id number] Others' Prescriptions Patient Name: Benito Coates Date: 1975 Address: [address] [place] [address] Sex: Male Rx Written Rx Dispensed Drug Quantity Days Supply Prescriber Name Payment Method Dispenser 10/24/2019 10/24/2019 chlordiazepoxide 25 mg capsule 18 3 Jc Hatch [facility] ASSESSMENT AND PLAN: OUD - complete methadone detox Sedative use - Valium detox ."
[2020-04-04] MEDS ORDERED: ONDANSETRON *ODT* 4 MG TABLET SL PRN (20:25)
[2020-04-04] MEDS ORDERED: TUBERCULIN PPD 5 TU/0.1ML VIAL ID ONE (21:35)
[2020-04-04] MEDS: diazePAM 5 MG TABLET PO SCH (21:50)
[2020-04-04] MEDS: NICOTINE 14 MG/24 HOURS TOPICAL PATCH TD SCH (21:50)
[2020-04-04] MEDS: THIAMINE HCL 100 MG TABLET (FP) PO SCH (21:51)
[2020-04-04] MEDS: hydrOXYzine PAMOATE 25 MG CAPSULE (FP) PO PRN (21:51)
[2020-04-04] MEDS ORDERED: MELATONIN 5 MG TABLETS PO SCH (22:00)
[2020-04-04] MEDS ORDERED: hydrOXYzine PAMOATE 25 MG CAPSULE (FP) PO SCH (22:00)
[2020-04-05] MEDS: diazePAM 5 MG TABLET PO SCH ×3 (06:02→22:04)
--- NOTE | 2020-04-05 09:24 | EKG ---
Test Reason : Blood Pressure : / mmHG Vent. Rate : 093 BPM Atrial Rate : 093 BPM P-R Int : 136 ms QRS Dur : 088 ms QT Int : 348 ms P-R-T Axes : 072 059 042 degrees QTc Int : 432 ms NORMAL SINUS RHYTHM POSSIBLE LEFT ATRIAL ENLARGEMENT BORDERLINE ECG WHEN COMPARED WITH ECG OF 03-JUN-2018 00:23, NO SIGNIFICANT CHANGE WAS FOUND Confirmed by MD ROSANA, VIK ([id number]) on 04/05/2020 9:24:12 AM Referred By: ARUN Confirmed By:VIK WAYNE MD
[2020-04-05] MEDS: NICOTINE 14 MG/24 HOURS TOPICAL PATCH TD SCH (09:40)
[2020-04-05] MEDS: METHOCARBAMOL 500 MG TABLET PO PRN (09:40)
[2020-04-05] MEDS: diazePAM 5 MG TABLET PO PRN ×2 (09:40→18:17)
[2020-04-05] MEDS: PRENATAL VITAMINS W/ FOLIC ACID TABLET (FP) PO SCH (09:40)
[2020-04-05 09:56] LABS: HEMATOCRIT 46.3 % (35.4-49); HEMOGLOBIN 15.2 GM/dL (11.7-16.9); MCH 30.4 pg (25.7-33.7); MCHC 32.9 g/dl (32.0-35.9); MEAN CELL VOLUME 92.3 fl (80-96); MEAN PLT VOLUME 7.2 fl (7.5-11.1); PLATELET COUNT 334 K/MM3 (134-434); RBC 5.02 M/mm3 (4.00-5.60); RDW 13.4 % (11.9-15.9); WHITE BLOOD COUNT 11.8 K/mm3 (4.0-10.0)
[2020-04-05] MEDS ORDERED: METHADONE HCL 5 MG TABLET (FOR DETOX USE ONLY) PO ONE (10:00)
[2020-04-05] MEDS ORDERED: METHADONE (DETOX) 20 MG, METHADONE (DETOX) 5 MG PO ONE (10:00)
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
[2020-04-05 10:08] LABS: ALBUMIN 4.4 g/dl (3.4-5.0); BILIRUBIN,TOTAL 0.6 mg/dL (0.2-1); BLOOD UREA NITROGEN 31.7 mg/dL (7-18); CALCIUM 9.5 mg/dL (8.5-10.1); CREATININE 1.6 mg/dL (0.55-1.3); POTASSIUM 4.8 mmol/L (3.5-5.1)
[2020-04-05] MEDS ORDERED: P-EPHED 60MG/TRIPROLIDI 2.5MG TABLET PO PRN (10:28)
[2020-04-05] MEDS ORDERED: METHADONE HCL 10 MG TABLET PO ONE (11:13)
[2020-04-05] MEDS ORDERED: METHADONE HCL 10 MG TABLET (FOR DETOX USE ONLY) PO ONE (11:24)
--- NOTE | 2020-04-05 12:47 | PN ---
BHS COWS - Scale Resting Pulse: 2= RI 101-120 Sweatin= Chills/Flushing Restless Observation: 3= Extraneous Movement Pupil Size: 0= Normal to Room Light Bone or Joint Aches: 4=Acute Joint/Muscle Pain Runny Nose/ Eye Tearin= Runny Nose/Eyes GI Upset > 30mins: 1= Stomach Cramp Tremor Observation of Outstretched Hands: 1= Tremor [place], Not Seen Yawning Observation: 0= None Anxiety or Irritability: 2=Irritable/Anxious Goose Flesh Skin: 0=Smooth Skin COWS Score: 16 BHS Progress Note (SOAP) Subjective: Pt is a 44 y/o male with a hx of heroin,Benzo and Fentanyl use disorder admitted to detox for withdrawal sx. Pt reports he was at "[facility] yesterday- 04/04/20 for Mental health and withdrawal sx". Pt reports was given "Methadone 10 mg and referred by the Hospital to this place for detox since they couldn't do it". This morning, Pt is c/o severe withdrawal sx and requested adjustment of his Methadone protocol stating that what we are giving him is not helping him.. c/o Anxiety agitation irritability nausea/vomiting runny nose cold sweats Bones ache intermittent sleep Objective: 04/05/20 12:58 Vital Signs - 24 hr 04/04/20 04/04/20 04/04/20 19:36 20:01 21:25 Temperature 98.8 F 98.8 F 97.8 F Pulse Rate 118 H 118 H 97 H Respiratory 18 18 18 Rate Blood Pressure 130/97 130/97 112/84 O2 Sat by Pulse 96 Oximetry (%) 04/04/20 04/05/20 04/05/20 23:57 05:44 09:23 Temperature 97.8 F 98.4 F 98.9 F Pulse Rate 97 H 96 H 118 H Respiratory 18 18 18 Rate Blood Pressure 112/84 123/82 130/97 O2 Sat by Pulse 96 Oximetry (%) 04/05/20 09:29 Temperature 97.5 F L Pulse Rate 78 Respiratory 16 Rate Blood Pressure 146/72 O2 Sat by Pulse 95 Oximetry (%) Laboratory Tests 04/05/20 04/05/20 04/05/20 08:00 08:00 08:00 WBC 11.8 H RBC 5.02 Hgb 15.2 Hct 46.3 MCV 92.3 MCH 30.4 MCHC 32.9 RDW 13.4 Plt Count 334 D MPV 7.2 L Sodium 138 Potassium 4.8 Chloride 100 Carbon Dioxide 31 Anion Gap 7 L BUN 31.7 H Creatinine 1.6 H Est GFR (CKD-EPI)AfAm 59.42 Est GFR (CKD-EPI)NonAf 51.27 Random Glucose 90 Calcium 9.5 Total Bilirubin 0.6 AST 36 ALT 75 H Alkaline Phosphatase 87 Total Protein 8.0 Albumin 4.4 Syphilis Serology Non-reactive covid-19 result pending alert o x 3 nad oob ambulating with staedy gait Assessment: 04/05/20 12:59 withdrawal sx Plan: continue detox increase po fluids maintain safety d/w Dr. Henry about pt's current regimen and need to readjust medications. Add Methadone 10 mg po once now Begin Methadone Taper down with 20 mg po once from 04/06/20. D/w pt and pt is agreeable with adjusted poc.
[2020-04-05] MEDS: THIAMINE HCL 100 MG TABLET (FP) PO SCH (22:04)
[2020-04-05] MEDS: MELATONIN 5 MG TABLETS PO PRN (22:05)
[2020-04-05] MEDS: hydrOXYzine PAMOATE 25 MG CAPSULE (FP) PO PRN (22:05)
[2020-04-05] MEDS: QUEtiapine FUMARATE 200 MG TABLET PO SCH (22:07)
[2020-04-06] MEDS: diazePAM 5 MG TABLET PO SCH ×2 (06:13→18:04)
[2020-04-06] MEDS ORDERED: METHADONE HCL 10 MG TABLET (FOR DETOX USE ONLY) PO ONE ×3 (10:00)
[2020-04-06] MEDS: PRENATAL VITAMINS W/ FOLIC ACID TABLET (FP) PO SCH (10:10)
[2020-04-06] MEDS: NICOTINE 14 MG/24 HOURS TOPICAL PATCH TD SCH (10:10)
[2020-04-06] MEDS: diazePAM 5 MG TABLET PO PRN ×2 (10:15→22:24)
--- NOTE | 2020-04-06 11:15 | PN ---
BHS COWS - Scale Resting Pulse: 0= [place] 80 or Below Sweatin= Chills/Flushing Restless Observation: 3= Extraneous Movement Pupil Size: 0= Normal to Room Light Bone or Joint Aches: 4=Acute Joint/Muscle Pain Runny Nose/ Eye Tearin= Nasal Congestion GI Upset > 30mins: 1= Stomach Cramp Tremor Observation of Outstretched Hands: 1= Tremor [place], Not Seen Yawning Observation: 0= None Anxiety or Irritability: 2=Irritable/Anxious Goose Flesh Skin: 0=Smooth Skin COWS Score: 13 BHS Progress Note (SOAP) Subjective: c/o sweats chills muscle aches/cramps nausea Objective: 04/06/20 11:06 Vital Signs - 24 hr 04/05/20 04/05/20 04/05/20 12:45 16:49 20:35 Temperature 97.7 F 98.4 F 97.5 F L Pulse Rate 67 76 68 Respiratory 16 18 20 Rate Blood Pressure 143/86 132/72 149/78 O2 Sat by Pulse 97 95 Oximetry (%) 04/06/20 05:46 Temperature 98.2 F Pulse Rate 71 Respiratory 20 Rate Blood Pressure 121/53 L O2 Sat by Pulse 93 L Oximetry (%) Laboratory Tests 04/04/20 04/05/20 04/05/20 21:05 08:00 08:00 WBC 11.8 H RBC 5.02 Hgb 15.2 Hct 46.3 MCV 92.3 MCH 30.4 MCHC 32.9 RDW 13.4 Plt Count 334 D MPV 7.2 L Sodium Potassium Chloride Carbon Dioxide Anion Gap BUN Creatinine Est GFR (CKD-EPI)AfAm Est GFR (CKD-EPI)NonAf POC Glucometer Random Glucose Calcium Total Bilirubin AST ALT Alkaline Phosphatase Total Protein Albumin Syphilis Serology Non-reactive COVID-19 (SANG) Not detected 04/05/20 04/05/20 08:00 16:58 WBC RBC Hgb Hct MCV MCH MCHC RDW Plt Count MPV Sodium 138 Potassium 4.8 Chloride 100 Carbon Dioxide 31 Anion Gap 7 L BUN 31.7 H Creatinine 1.6 H Est GFR (CKD-EPI)AfAm 59.42 Est GFR (CKD-EPI)NonAf 51.27 POC Glucometer 117 Random Glucose 90 Calcium 9.5 Total Bilirubin 0.6 AST 36 ALT 75 H Alkaline Phosphatase 87 Total Protein 8.0 Albumin 4.4 Syphilis Serology COVID-19 (SANG) covid-19 not detected alert o x 3 nad oob ambulating with steady gait Assessment: 04/06/20 11:07 withdrawal sx Plan: cont detox increase po fluids maintain safety
[2020-04-06] MEDS: hydrOXYzine PAMOATE 25 MG CAPSULE (FP) PO PRN (15:58)
[2020-04-06] MEDS: METHOCARBAMOL 500 MG TABLET PO PRN (15:58)
[2020-04-06 17:09] LABS: PH,URINE 5.5 (5.0-8.0); URINE APPEARANCE CLEAR; URINE BILIRUBIN NEGATIVE (NEGATIVE); URINE COLOR YELLOW; URINE GLUCOSE (UA) NEGATIVE (NEGATIVE); URINE KETONE NEGATIVE (NEGATIVE); URINE LEUK ESTERASE NEGATIVE (NEGATIVE); URINE NITRITE NEGATIVE (NEGATIVE); URINE PROTEIN NEGATIVE (NEGATIVE); URINE UROBILINOGEN 0.2 mg/dL (0.2-1.0)
[2020-04-06] MEDS: QUEtiapine FUMARATE 200 MG TABLET PO SCH (22:22)
[2020-04-06] MEDS: THIAMINE HCL 100 MG TABLET (FP) PO SCH (22:23)
[2020-04-06] MEDS: MELATONIN 5 MG TABLETS PO PRN (22:23)
[2020-04-07] MEDS ORDERED: diazePAM 5 MG TABLET PO ONE (06:00)
[2020-04-07] MEDS ORDERED: METHADONE HCL 5 MG TABLET (FOR DETOX USE ONLY) PO ONE (06:00)
[2020-04-07 09:18] VITALS: BP 151/74; PULSE 80; TEMP 97.7
--- NOTE | 2020-04-07 09:23 | PN ---
[facility] Progress Note Note: Patient is discharged today. Scripts for 30 days supply of medications(Welbutrin XL 150 mg/day, Seroquel 200 mg/hs) are electronically transmitted to [facility],[address] [place] [address]
[2020-04-07] MEDS: NICOTINE 14 MG/24 HOURS TOPICAL PATCH TD SCH (09:26)
[2020-04-07] MEDS: PRENATAL VITAMINS W/ FOLIC ACID TABLET (FP) PO SCH (09:27)
--- NOTE | 2020-04-07 09:48 | DS ---
[facility] Detox Discharge Summary Admission Date: 04/04/20 Discharge Date: 04/07/20 - History Present History: Opioid Dependence, Sedative Dependence Additional Comments: Pt requests for voluntary discharge today per discussion with patient and his counselor, Ms Sun Callaway because pt has an interview today for his living arrangement and to meet with his customs patrol officer for scheduled hand picker of his belongings. Pt denies any acute withdrawal sx at this time and states he is comfortable. Pt reports he has Narcan and does not need Rx sent to pharmacy today. Pt reports no current PCP but states he goes to [facility] for medical care if needed. Pertinent Past History: Mood Disorder PTSD Anxiety - Physical Exam Results Vital Signs: Vital Signs Temperature 97.7 F 04/07/20 08:48 Pulse Rate 80 04/07/20 08:48 Respiratory Rate 18 04/07/20 08:48 Blood Pressure 151/74 04/07/20 08:48 O2 Sat by Pulse Oximetry (%) 97 04/07/20 07:00 Alert o x 3 nad oob ambulating with steady gait cardiac:s1 s2,rrr lungs:ctab abdomen:soft,+bs,nt,nd extremities:no edema;skin intact Pertinent Admission Physical Exam Findings: Laboratory Tests 04/04/20 04/05/20 04/05/20 21:05 08:00 08:00 WBC 11.8 H RBC 5.02 Hgb 15.2 Hct 46.3 MCV 92.3 MCH 30.4 MCHC 32.9 RDW 13.4 Plt Count 334 D MPV 7.2 L Sodium Potassium Chloride Carbon Dioxide Anion Gap BUN Creatinine Est GFR (CKD-EPI)AfAm Est GFR (CKD-EPI)NonAf POC Glucometer Random Glucose Calcium Total Bilirubin AST ALT Alkaline Phosphatase Total Protein Albumin Urine Color Urine Appearance Urine pH Ur Specific [place] Urine Protein Urine Glucose (UA) Urine Ketones Urine Blood Urine Nitrite Urine Bilirubin Urine Urobilinogen Ur Leukocyte Esterase Syphilis Serology Non-reactive COVID-19 (SANG) Not detected 04/05/20 04/05/20 04/06/20 08:00 16:58 13:20 WBC RBC Hgb Hct MCV MCH MCHC RDW Plt Count MPV Sodium 138 Potassium 4.8 Chloride 100 Carbon Dioxide 31 Anion Gap 7 L BUN 31.7 H Creatinine 1.6 H Est GFR (CKD-EPI)AfAm 59.42 Est GFR (CKD-EPI)NonAf 51.27 POC Glucometer 117 Random Glucose 90 Calcium 9.5 Total Bilirubin 0.6 AST 36 ALT 75 H Alkaline Phosphatase 87 Total Protein 8.0 Albumin 4.4 Urine Color Yellow Urine Appearance Clear Urine pH 5.5 Ur Specific [place] 1.026 Urine Protein Negative Urine Glucose (UA) Negative Urine Ketones Negative Urine Blood Negative Urine Nitrite Negative Urine Bilirubin Negative Urine Urobilinogen 0.2 Ur Leukocyte Esterase Negative Syphilis Serology COVID-19 (SANG) 04/07/20 06:25 WBC RBC Hgb Hct MCV MCH MCHC RDW Plt Count MPV Sodium Potassium Chloride Carbon Dioxide Anion Gap BUN Creatinine Est GFR (CKD-EPI)AfAm Est GFR (CKD-EPI)NonAf POC Glucometer 81 Random Glucose Calcium Total Bilirubin AST ALT Alkaline Phosphatase Total Protein Albumin Urine Color Urine Appearance Urine pH Ur Specific [place] Urine Protein Urine Glucose (UA) Urine Ketones Urine Blood Urine Nitrite Urine Bilirubin Urine Urobilinogen Ur Leukocyte Esterase Syphilis Serology COVID-19 (SANG) - Treatment Hospital Course: Detox Protocol Followed, Detoxed Safely, Responded well, Discharged Condition Good, Rehab Referral Accepted Patient has Accepted a Rehab Referral to: [place], [place] - Medication Discharge Medications: Ambulatory Orders Bupropion HCl [Wellbutrin Xl -] 150 mg PO DAILY #30 tab.sr.24h 04/07/20 Bupropion HCl [Wellbutrin Xl -] 150 mg PO DAILY #30 tab.sr.24h 04/07/20 Quetiapine Fumarate [Seroquel -] 200 mg PO HS #30 tab 04/07/20 Quetiapine Fumarate [Seroquel -] 200 mg PO HS #30 tablet 04/07/20 - Diagnosis (1) Sedative hypnotic or anxiolytic dependence Current Visit: Yes Status: Acute (2) Opioid dependence with withdrawal Current Visit: Yes Status: Acute (3) IVDU (intravenous drug user) Current Visit: Yes Status: Chronic (4) Nicotine dependence Current Visit: Yes Status: Acute Qualifiers: Nicotine product type: cigarettes Substance use status: in withdrawal Qualified Code(s): F17.213 - Nicotine dependence, cigarettes, with withdrawal - AMA Did Patient Leave Against Medical Advice: No
[2020-04-07] MEDS ORDERED: METHADONE (DETOX) 10 MG, METHADONE (DETOX) 5 MG PO ONE ×2 (10:00)
[2020-04-08] MEDS ORDERED: METHADONE HCL 10 MG TABLET (FOR DETOX USE ONLY) PO ONE ×2 (10:00)
[2020-04-09] MEDS ORDERED: METHADONE HCL 5 MG TABLET (FOR DETOX USE ONLY) PO ONE ×2 (06:00)
== END 2020-04-07 10:00 | disposition home or self-care (01) | DRG 773 ==
LOC: YASAS 18:25 → Y5N DETOX 20:30
PROVIDERS: ADMIT Allergy & Immunology; ATTEND Allergy & Immunology
PROC: HZ2ZZZZ Detoxification Services for Substance Abuse Treatment (ICD-10-PCS; principal; 2020-04-04)
DX: F11.23 Opioid dependence with withdrawal (principal); F13.20 Sedative, hypnotic or anxiolytic dependence, uncomplicated; F17.210 Nicotine dependence, cigarettes, uncomplicated; F19.282 Other psychoactive substance dependence with psychoactive substance-induced sleep disorder; F39 Unspecified mood [affective] disorder; F41.9 Anxiety disorder, unspecified; F43.10 Post-traumatic stress disorder, unspecified; J45.909 Unspecified asthma, uncomplicated; G40.509 Epileptic seizures related to external causes, not intractable, without status epilepticus; Z86.39 Personal history of other endocrine, nutritional and metabolic disease; Z62.810 Personal history of physical and sexual abuse in childhood; Z91.410 Personal history of adult physical and sexual abuse; Z56.0 Unemployment, unspecified; Z59.0 Homelessness; Z91.013 Allergy to seafood
CPT/HCPCS: 36415; 80053; 81003; 82962; 85027; 86780; 93005; 93010; J0735; U0003

== ENCOUNTER 2020-04-26 08:19 | Inpatient (IN) | payer OTHER ==
--- NOTE | 2020-04-26 08:32 | BHS.RME ---
Substance Use & Tx History - Substance Use History Heroin Substance amount: 1 bundle Frequency of use: Daily Substance route: Vaping Date of Last Use: 04/25/20 Fentanyl Substance amount: 1 bundle Frequency of use: Daily Substance route: Injection (ex: intravenous or skin popping) Date of Last Use: 04/25/20 Xanax Substance amount: 3-4 mg Frequency of use: Daily Substance route: Oral Date of Last Use: 04/24/20 Nicotine Substance amount: 1/2 pack Frequency of use: Daily Substance route: Smoking Date of Last Use: 04/26/20 - Last Treatment Date of last treatment: 04/04-04/07/20 Treatment type: Substance Use Disorder (PARISH) Where was last treatment: Detox Physical/Psych/Mental Status - Behavior General Behavior: Increased activity (restlessness, agitation) Eye Contact: Normal - Thinking Thought Processes: Tight, Logical, Goal Directed - Physical Health Problems Is patient presently having any pain?: No Does patient presently have any injuries (include location): No Does patient currently have a fever: No Is patient : No COWS - Scale Resting Pulse: 0= [place] 80 or Below Sweatin= Chills/Flushing Restless Observation: 1= Difficult to Sit Still Pupil Size: 1= Pupils >than Normal Bone or Joint Aches: 1= Mild Discomfort Runny Nose/ Eye Tearin= Nasal Congestion GI Upset > 30mins: 1= Stomach Cramp Tremor Observation: 1= Tremor [place], Not Seen Yawning Observation: 1= 1-2x During Session Anxiety or Irritability: 1=Feels Anxious/Irritable Goose Flesh Skin: 3=Piloerection COWS Score: 12
[2020-04-26 08:50] VITALS: BMI 25.4
--- NOTE | 2020-04-26 09:02 | HP ---
COWS - Scale Resting Pulse: 0= [place] 80 or Below Sweatin= Chills/Flushing Restless Observation: 1= Difficult to Sit Still Pupil Size: 1= Pupils >than Normal Bone or Joint Aches: 1= Mild Discomfort Runny Nose/ Eye Tearin= Nasal Congestion GI Upset > 30mins: 1= Stomach Cramp Tremor Observation: 1= Tremor [place], Not Seen Yawning Observation: 1= 1-2x During Session Anxiety or Irritability: 1=Feels Anxious/Irritable Goose Flesh Skin: 3=Piloerection COWS Score: 12 CIWA Score - Admission Criteria OASAS Guidelines: Admission for Medically Managed Detox: Requires at least one of the followin. CIWA greater than 12 2. Seizures within the past 24 hours 3. Delirium tremens within the past 24 hours 4. Hallucinations within the past 24 hours 5. Acute intervention needed for co occurring medical disorder 6. Acute intervention needed for co occurring psychiatric disorder 7. Severe withdrawal that cannot be handled at a lower level of care (continued vomiting, continued diarrhea, abnormal vital signs) requiring intravenous medication and/or fluids 8. Admitting History and Physical - Admission Chief Complaint: " i was mandated by parole to go to detox and then I have [facility] housing in place." History of Present Illness: 44 year old male with history of opioid dependence, benzodiazepine use disorder, nicotine dependence seeking detox. He was last here in 04/04-04/07/20 but left early due to a job interview that he had to keep. He was also been keeping his parole appointments and housing from [facility] also has come into place. He will complete detox this time for the [employer] and will sign behavioral contract to do so. Substance Use & Tx History - Substance Use History Heroin Substance amount: 1 bundle Frequency of use: Daily Substance route: Vaping Date of Last Use: 04/25/20 He has had 5 overdoses in the past, last one 1.5 weeks ago, he now carries narcan. Fentanyl Substance amount: 1 bundle Frequency of use: Daily Substance route: Injection (ex: intravenous or skin popping) Date of Last Use: 04/25/20 Xanax Substance amount: 3-4 mg Frequency of use: Daily Substance route: Oral Date of Last Use: 04/24/20 Patient was educated with regards to BZO interaction with opioids and its potentiation of respiratory depression increasing his risk of overdose. Nicotine Substance amount: 1/2 pack Frequency of use: Daily Substance route: Smoking PMH: Asthma, Seizures secondary to withdrawals from BZO in the past. Psurg: Tonsillectomy Psych: PTSD, Mood Disorder, Anxiety Disorder, Bipolar, Depression He now has housing through [facility] at [address] [place] [address] Legal has mandated parole to complete detox. He meets criteria for detox as he has multiple medical as well as psychiatric co-morbidities. 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 Pulmonary: Yes: Asthma - Past Surgical History Past Surgical History: Yes: Tonsillectomy - Smoking History Smoking history: Current every day smoker Have you smoked in the past 12 months: Yes Aproximately how many cigarettes per day: 10 - Alcohol/Substance Use Hx Alcohol Use: No History of Substance Use: reports: Cocaine, Heroin, Tranquilizers Date of Last Use: 08/09/19 - Social History Usual Living Arrangement: Yes: Other Do you think of yourself as: Straight/Heterosexual ADL: Independent Occupation: [employer], unemployed History of Recent Travel: No Admission [facility] Allergies/Adverse Reactions: Allergies Allergy/AdvReac Type Severity Reaction Status Date / Time fish derived Allergy Mild Hives Verified 04/04/20 19:38 shellfish derived Allergy Mild Hives Verified 04/04/20 19:38 seafood Allergy Mild Hives Uncoded 04/04/20 19:38 Exam Limitations: No Limitations - Ebola screening Have you traveled outside of the country in the last 21 days: No Have you had contact with anyone from an Ebola affected area: No Have you been sick,other than usual withdrawal symptoms: No Do you have a fever: No - Review of Systems Constitutional: Chills EENT: reports: No Symptoms Reported Respiratory: reports: No Symptoms reported Cardiac: reports: No Symptoms Reported GI: reports: Abdominal cramping : reports: No Symptoms Reported Musculoskeletal: reports: Back Pain, Muscle Pain Integumentary: reports: No Symptoms Reported Neuro: reports: No Symptoms reported Endocrine: reports: No Symptoms Reported Hematology: reports: No Symptoms Reported Psychiatric: reports: Judgement Intact, Mood/Affect Appropiate, Orientated x3, Agitated, Anxious Other Systems: Reviewed and Negative Patient History - Patient Medical History Hx Anemia: No Hx Asthma: Yes Hx Chronic Obstructive Pulmonary Disease (COPD): No Hx Cancer: No Hx Cardiac Disorders: No Hx Congestive Heart Failure: No Hx Hypertension: No Hx Hypercholesterolemia: No Hx Pacemaker: No HX Cerebrovascular Accident: No Hx Seizures: Yes (withdrawal related last 2 days ago) Hx Dementia: No Hx Diabetes: No Hx Gastrointestinal Disorders: No Hx Liver Disease: No Hx Genitourinary Disorders: No Hx Sexually Transmitted Disorders: No Hx Renal Disease (ESRD): No Hx Thyroid Disease: No Hx Human Immunodeficiency Virus (HIV): No Hx Hepatitis C: No Hx Depression: Yes (Pt. reports dx of Bipolar I D/O, Anxiety D/O, & PTSD) Hx Suicide Attempt: No Hx Bipolar Disorder: No Hx Schizophrenia: No - Patient Surgical History Past Surgical History: Yes Hx Neurologic Surgery: No Hx Cataract Extraction: No Hx Cardiac Surgery: No Hx Lung Surgery: No Hx Breast Surgery: No Hx Breast Biopsy: No Hx Abdominal Surgery: No Hx Appendectomy: No Hx Cholecystectomy: No Hx Genitourinary Surgery: No Hx Section: No Hx Orthopedic Surgery: No Other Surgical History: TONSILECTOMY Anesthesia Reaction: No - PPD History Previous Implant?: Yes Documented Results: Negative w/proof Implanted On Prior [facility] Admission?: No Date: 04/06/20 Results: negative PPD to be Administered?: No - Smoking Cessation Smoking history: Current every day smoker Have you smoked in the past 12 months: Yes Aproximately how many cigarettes per day: 10 Hx Chewing Tobacco Use: No Initiated information on smoking cessation: Yes 'Breaking Loose' booklet given: 04/26/20 - Substances abused Heroin Substance route: Injection Frequency: Daily Amount used: 1 bundle - 1.5 bundles Age of first use: 31 Date of last use: 04/25/20 Alprazolam (Xanax) Substance route: Oral Frequency: Daily Amount used: 3-4 mg Age of first use: 39 Date of last use: 04/24/20 Cocaine Substance route: Inhalation Frequency: 1-2 times per week Amount used: 1 bag Age of first use: 31 Date of last use: 04/25/20 Admission Physical Exam BHS - Vital Signs Vital Signs: Vital Signs - 24 hr 08/18/20 08/18/20 08:45 08:50 Temperature 97.7 F 97.7 F Pulse Rate 67 67 Respiratory 19 19 Rate Blood Pressure 106/66 106/66 - Physical General Appearance: Yes: Mild Distress, Tremorous, Irritable, Sweating, Anxious HEENTM: Yes: EOMI, Hearing grossly Normal, Normal ENT Inspection, Normocephalic, Normal Voice, CAR, Pharynx Normal, Tm's normal Respiratory: Yes: Chest Non-Tender, Lungs Clear, Normal Breath Sounds, No Respiratory Distress, No Accessory Muscle Use Neck: Yes: No masses,lesions,Nodules, Supple, Trachea in good position Breast: Yes: Within Normal Limits Cardiology: Yes: Regular Rhythm, Regular Rate, S1, S2 Abdominal: Yes: Normal Bowel Sounds, Non Tender, Soft, Protuberent Genitourinary: Yes: Within Normal Limits Back: Yes: Normal Inspection Musculoskeletal: Yes: full range of Motion, Gait Steady, Pelvis Stable Extremities: Yes: Normal Capillary Refill, Normal Inspection, Normal Range of Motion, Non-Tender Neurological: Yes: fiberglass finisher II-XII NML intact, Fully Oriented, Alert, Motor Strength 5/5, Normal Mood/Affect, Normal Response Integumentary: Yes: Normal Color, Dry, Warm Lymphatic: Yes: Within Normal Limits - Diagnostic (1) Opioid dependence with withdrawal Current Visit: Yes Status: Acute (2) Sedative hypnotic or anxiolytic dependence Current Visit: Yes Status: Acute (3) Substance-induced sleep disorder Current Visit: Yes Status: Acute (4) Anxiety Current Visit: Yes Status: Chronic (5) Cocaine dependence Current Visit: Yes Status: Chronic (6) IVDU (intravenous drug user) Current Visit: Yes Status: Chronic (7) Mood disorder Current Visit: Yes Status: Chronic (8) PTSD (post-traumatic stress disorder) Current Visit: Yes Status: Chronic (9) Substance induced mood disorder Current Visit: Yes Status: Suspected Cleared for Admission S - Detox or Rehab [facility] Level of Care: Medically Managed Detox Regimen/Protocol: Methadone Claeared for Rehab Admission: No Screened but not Admitted - Documentation of Visit Screened but not Admitted: No Breathalyzer - Breathalyzer Breathalyzer: 0 Vital Signs - Vital Signs Vital signs refused: No Temperature: 97.9 F Temperature source: Oral Pulse Rate: 67 Respiratory Rate: 19 Blood Pressure: 106/66 BP Location: Left Arm Blood Pressure position: Sitting - Height Height: 5 ft 5 in - Weight Weight: 153 lb Weight measurement method: Standing scale - BMI Body Mass Index (BMI): 25.4 - Bowel Function Bowel Movement: No Urine Drug Screen - Test Device Lot number: [id number] Expiration date: 12/15/21 - Control Is test valid?: Yes - Results Drug screen NEGATIVE: No Urine drug screen results: MIKHAIL-Cocaine, MOP-Opiates, MTD-Methadone, BZO- Benzodiazepines Inpatient Rehab Admission - Rehab Decision to Admit Inpatient rehab admission?: No
[2020-04-26] MEDS ORDERED: METHOCARBAMOL 500 MG TABLET PO PRN (09:16)
[2020-04-26] MEDS ORDERED: BISMUTH SUBSALICYLATE 524 MG/30 ML UD PO PRN (09:16)
[2020-04-26] MEDS ORDERED: MAG HYDROX/AL HYDROX/SIMETH 30 ML UNIT-DOSE CUP PO PRN (09:16)
[2020-04-26] MEDS ORDERED: cloNIDine HCL 0.1 MG TABLET PO PRN (09:16)
[2020-04-26] MEDS ORDERED: NICOTINE POLACRILEX 2 MG GUM BUC PRN (09:16)
[2020-04-26] MEDS ORDERED: MAGNESIUM HYDROX 2400MG/30ML ORAL SUSPENSION 30 ML CUP PO PRN (09:16)
[2020-04-26] MEDS ORDERED: MENTHOL/PHENOL 1 EACH UD MM PRN (09:16)
[2020-04-26] MEDS ORDERED: ACETAMINOPHEN 325 MG TABLET (FP) PO PRN ×2 (09:16)
[2020-04-26] MEDS ORDERED: MAGNESIUM CITRATE 300 ML BOTTLE PO PRN (09:16)
[2020-04-26] MEDS ORDERED: METHADONE HCL 10 MG TABLET (FOR DETOX USE ONLY) PO ONE (09:30)
[2020-04-26] MEDS: NICOTINE 7 MG/24 HOURS TOPICAL PATCH TD SCH (09:50)
[2020-04-26] MEDS ORDERED: hydrOXYzine PAMOATE 25 MG CAPSULE (FP) PO PRN (09:56)
[2020-04-26] MEDS ORDERED: hydrOXYzine PAMOATE 25 MG CAPSULE (FP) PO SCH (10:00)
[2020-04-26] MEDS ORDERED: ONDANSETRON *ODT* 4 MG TABLET SL ONE (10:00)
[2020-04-26] MEDS: PRENATAL VITAMINS W/ FOLIC ACID TABLET (FP) PO SCH (10:04)
[2020-04-26] MEDS: diazePAM 5 MG TABLET PO PRN ×2 (12:14→17:46)
[2020-04-26 13:05] LABS: ALBUMIN 3.2 g/dl (3.4-5.0); BILIRUBIN,TOTAL 0.7 mg/dL (0.2-1); BLOOD UREA NITROGEN 17.9 mg/dL (7-18); CALCIUM 8.3 mg/dL (8.5-10.1); CREATININE 0.9 mg/dL (0.55-1.3); POTASSIUM 3.6 mmol/L (3.5-5.1); TOT PROT 6.5 g/dl (6.4-8.2)
[2020-04-26 13:08] LABS: HEMATOCRIT 41.1 % (35.4-49); MCH 30.6 pg (25.7-33.7); MEAN CELL VOLUME 90.1 fl (80-96); MEAN PLT VOLUME 9.3 fl (7.5-11.1); PLATELET COUNT 115 K/MM3 (134-434); RBC 4.56 M/mm3 (4.00-5.60); RDW 13.6 % (11.9-15.9); WHITE BLOOD COUNT 13.8 K/mm3 (4.0-10.0)
[2020-04-26] MEDS: diazePAM 5 MG TABLET PO SCH ×2 (14:02→21:52)
[2020-04-26] MEDS: THIAMINE HCL 100 MG TABLET (FP) PO SCH (21:52)
[2020-04-26] MEDS ORDERED: MELATONIN 5 MG TABLETS PO SCH (22:00)
[2020-04-27] MEDS: diazePAM 5 MG TABLET PO SCH ×3 (06:01→22:31)
[2020-04-27] MEDS ORDERED: METHADONE HCL 5 MG TABLET (FOR DETOX USE ONLY) ONE (09:26)
[2020-04-27] MEDS ORDERED: METHADONE HCL 10 MG TABLET (FOR DETOX USE ONLY) ONE (09:26)
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
[2020-04-27] MEDS ORDERED: METHADONE (DETOX) 20 MG, METHADONE (DETOX) 5 MG PO ONE (10:00)
[2020-04-27] MEDS: PRENATAL VITAMINS W/ FOLIC ACID TABLET (FP) PO SCH (10:28)
[2020-04-27] MEDS: NICOTINE 7 MG/24 HOURS TOPICAL PATCH TD SCH (10:30)
[2020-04-27] MEDS: diazePAM 5 MG TABLET PO PRN ×2 (10:32→17:53)
--- NOTE | 2020-04-27 12:18 | PN ---
[facility] CIWA - CIWA Score Nausea/Vomitin-No Nausea/No Vomiting Muscle Tremors: 2 Anxiety: 1-Mildly Anxious Agitation: 2 Paroxysmal Sweats: 1-Minimal Palms Moist Orientation: 0-Oriented Tacttile Disturbances: 0-None Auditory Disturbances: 0-None Visual Disturbances: 0-None Headache: 0-None Present CIWA-Ar Total Score: 6 S COWS - Scale Resting Pulse: 0= [place] 80 or Below Sweatin= Chills/Flushing Restless Observation: 1= Difficult to Sit Still Pupil Size: 0= Normal to Room Light Bone or Joint Aches: 1= Mild Discomfort Runny Nose/ Eye Tearin= None GI Upset > 30mins: 0= None Tremor Observation of Outstretched Hands: 1= Tremor [place], Not Seen Yawning Observation: 0= None Anxiety or Irritability: 2=Irritable/Anxious Goose Flesh Skin: 0=Smooth Skin COWS Score: 6 [facility] Progress Note (SOAP) Subjective: anxiety little sweats I need to be d/c on Saturday04/29/2020 because I have a connection to go into [facility] at [facility] program Objective: 04/27/20 12:15 Vital Signs Temperature 97.7 F 04/27/20 08:35 Pulse Rate 69 04/27/20 08:35 Respiratory Rate 18 04/27/20 08:35 Blood Pressure 138/53 L 04/27/20 08:35 O2 Sat by Pulse Oximetry (%) 98 04/27/20 06:11 Laboratory Tests 04/26/20 04/26/20 04/26/20 09:15 09:15 09:15 WBC 13.8 H RBC 4.56 Hgb 14.0 Hct 41.1 MCV 90.1 MCH 30.6 MCHC 34.0 RDW 13.6 Plt Count 115 L D MPV 9.3 D Sodium 140 Potassium 3.6 Chloride 106 Carbon Dioxide 28 Anion Gap 6 L BUN 17.9 Creatinine 0.9 Est GFR (CKD-EPI)AfAm 119.13 Est GFR (CKD-EPI)NonAf 102.79 Random Glucose 99 Calcium 8.3 L Total Bilirubin 0.7 AST 150 H ALT 405 H Alkaline Phosphatase 129 H Total Protein 6.5 Albumin 3.2 L Syphilis Serology Non-reactive labs noted elevated liver enzymes d/c tylenol will repeat labs aaox3 ambulating no acute distress Assessment: 04/27/20 12:16 withdrawals pt will be placed on a lesser methadone taper to assist with a smooth transition to [facility] program; pt in agreement Plan: continue with modified taper as per pt request increase fluids d/c tylenol repeat labs
--- NOTE | 2020-04-27 15:15 | PN ---
[facility] Progress Note Note: pt c/o abscess to left forearm. skin assessed, no redness noted, there is some swelling noted. pt c/o tenderness to area. encouraged warm compress application and will start with ABX bactrim ds prophylaxis
[2020-04-27] MEDS: IBUPROFEN 400 MG TABLET (FP) PO PRN (17:53)
[2020-04-27] MEDS ORDERED: SUVOREXANT 10 MG TABLET PO PRN (22:00)
[2020-04-27] MEDS: THIAMINE HCL 100 MG TABLET (FP) PO SCH (22:31)
[2020-04-27] MEDS: SULFAMETHOXAZOLE/TRIMETHOPRIM 800MG/160MG D.S. TABLET PO SCH (22:31)
[2020-04-28] MEDS: diazePAM 5 MG TABLET PO SCH ×2 (05:34→17:52)
[2020-04-28] MEDS ORDERED: METHADONE HCL 10 MG TABLET (FOR DETOX USE ONLY) PO ONE (10:00)
--- NOTE | 2020-04-28 10:01 | PN ---
S CIWA - CIWA Score Nausea/Vomitin-No Nausea/No Vomiting Muscle Tremors: 2 Anxiety: 1-Mildly Anxious Agitation: 1-Slight > Activity Paroxysmal Sweats: No Perspiration Orientation: 0-Oriented Tacttile Disturbances: 0-None Auditory Disturbances: 0-None Visual Disturbances: 0-None Headache: 0-None Present CIWA-Ar Total Score: 4 [facility] COWS - Scale Resting Pulse: 0= [place] 80 or Below Sweatin= No chills or Flushing Restless Observation: 1= Difficult to Sit Still Pupil Size: 0= Normal to Room Light Bone or Joint Aches: 1= Mild Discomfort Runny Nose/ Eye Tearin= None GI Upset > 30mins: 0= None Tremor Observation of Outstretched Hands: 1= Tremor [place], Not Seen Yawning Observation: 0= None Anxiety or Irritability: 1=Feels Anxious/Irritable Goose Flesh Skin: 0=Smooth Skin COWS Score: 4 S Progress Note (SOAP) Subjective: feeling better little anxiety the bump on my forearm is not getting worse, feeling ok Objective: 04/28/20 10:00 Vital Signs Temperature 97.7 F 04/28/20 05:30 Pulse Rate 61 04/28/20 05:30 Respiratory Rate 20 04/28/20 05:30 Blood Pressure 132/66 04/28/20 05:30 O2 Sat by Pulse Oximetry (%) 99 04/28/20 05:30 Laboratory Tests 04/26/20 04/26/20 04/26/20 09:15 09:15 09:15 WBC 13.8 H RBC 4.56 Hgb 14.0 Hct 41.1 MCV 90.1 MCH 30.6 MCHC 34.0 RDW 13.6 Plt Count 115 L D MPV 9.3 D Sodium 140 Potassium 3.6 Chloride 106 Carbon Dioxide 28 Anion Gap 6 L BUN 17.9 Creatinine 0.9 Est GFR (CKD-EPI)AfAm 119.13 Est GFR (CKD-EPI)NonAf 102.79 Random Glucose 99 Calcium 8.3 L Total Bilirubin 0.7 AST 150 H ALT 405 H Alkaline Phosphatase 129 H Total Protein 6.5 Albumin 3.2 L Syphilis Serology Non-reactive COVID-19 (SANG) 04/26/20 14:00 WBC RBC Hgb Hct MCV MCH MCHC RDW Plt Count MPV Sodium Potassium Chloride Carbon Dioxide Anion Gap BUN Creatinine Est GFR (CKD-EPI)AfAm Est GFR (CKD-EPI)NonAf Random Glucose Calcium Total Bilirubin AST ALT Alkaline Phosphatase Total Protein Albumin Syphilis Serology COVID-19 (SANG) Not detected repeated labs pending aaox3 ambulating no acute distress Assessment: 04/28/20 10:00 mild withdrawals abscess to arm is not worsening, encouraged to continue with warm compresses and oral ABX ordered. Plan: continue detox d/c in am ABX sent to pharmacy and pt is aware.
[2020-04-28] MEDS: PRENATAL VITAMINS W/ FOLIC ACID TABLET (FP) PO SCH (10:33)
[2020-04-28] MEDS: SULFAMETHOXAZOLE/TRIMETHOPRIM 800MG/160MG D.S. TABLET PO SCH ×2 (10:33→23:04)
[2020-04-28] MEDS: diazePAM 5 MG TABLET PO PRN ×3 (10:34→20:45)
[2020-04-28 10:36] LABS: BASO % 0.4 % (0-2.0); EOS % 6.1 % (0-4.5); HEMATOCRIT 40.9 % (35.4-49); HEMOGLOBIN 13.5 GM/dL (11.7-16.9); LYMPH % 36.3 % (8-40); MCH 29.7 pg (25.7-33.7); MEAN CELL VOLUME 90.2 fl (80-96); MEAN PLT VOLUME 8.6 fl (7.5-11.1); MONO % 10.6 % (3.8-10.2); NEUT % 46.6 % (42.8-82.8); PLATELET COUNT 158 K/MM3 (134-434); RBC 4.54 M/mm3 (4.00-5.60); RDW 13.7 % (11.9-15.9); WHITE BLOOD COUNT 6.8 K/mm3 (4.0-10.0)
[2020-04-28] MEDS: IBUPROFEN 400 MG TABLET (FP) PO PRN (10:38)
[2020-04-28] MEDS: NICOTINE 7 MG/24 HOURS TOPICAL PATCH TD SCH (10:46)
[2020-04-28 10:51] LABS: ALBUMIN 2.9 g/dl (3.4-5.0); BILIRUBIN,TOTAL 0.3 mg/dL (0.2-1); BLOOD UREA NITROGEN 12.1 mg/dL (7-18); CREATININE 0.8 mg/dL (0.55-1.3); POTASSIUM 4.4 mmol/L (3.5-5.1); TOT PROT 5.8 g/dl (6.4-8.2)
[2020-04-28] MEDS: THIAMINE HCL 100 MG TABLET (FP) PO SCH (23:04)
[2020-04-29] MEDS ORDERED: METHADONE HCL 10 MG TABLET (FOR DETOX USE ONLY) PO ONE (06:00)
[2020-04-29] MEDS ORDERED: diazePAM 5 MG TABLET PO ONE (06:00)
[2020-04-29 08:30] VITALS: BP 127/92; PULSE 84; TEMP 97.6
--- NOTE | 2020-04-29 08:35 | DS ---
[facility] Detox Discharge Summary Admission Date: 04/26/20 Discharge Date: 04/29/20 - History Present History: Opioid Dependence - Physical Exam Results Vital Signs: Vital Signs Temperature 97.6 F 04/29/20 06:39 Pulse Rate 84 04/29/20 06:39 Respiratory Rate 18 04/29/20 06:39 Blood Pressure 127/92 04/29/20 06:39 O2 Sat by Pulse Oximetry (%) 96 04/29/20 06:39 Pertinent Admission Physical Exam Findings: Pt admitted for alcohol and benzo detox. Completed 4 days. Pt noted to have increased liver enzymes. Pt will follow up today at [facility] methadone program to start treatment. Pt recieved 20mg of methadone today- also has a d/c note for the program. Pt given a copy of liver test results- pt will f/u with PCP has an appointment with PCP next month. - Treatment Hospital Course: Detox Protocol Followed, Detoxed Safely, Responded well, Discharged Condition Good, Rehab Referral Accepted - Medication Discharge Medications: Ambulatory Orders Bupropion HCl [Wellbutrin Xl -] 150 mg PO DAILY #30 tab.sr.24h 04/07/20 Sulfamethoxazole/Trimethoprim [Bactrim DS -] 1 each PO BID #14 tablet 04/28/20 - Diagnosis (1) Cocaine dependence Current Visit: Yes Status: Acute (2) Opioid dependence with withdrawal Current Visit: Yes Status: Acute (3) Sedative hypnotic or anxiolytic dependence Current Visit: Yes Status: Acute - AMA Did Patient Leave Against Medical Advice: No
[2020-04-29] MEDS ORDERED: METHADONE HCL 10 MG TABLET PO ONE (08:45)
[2020-04-29] MEDS ORDERED: METHADONE (DETOX) 10 MG, METHADONE (DETOX) 5 MG PO ONE (10:00)
[2020-04-30] MEDS ORDERED: METHADONE HCL 10 MG TABLET (FOR DETOX USE ONLY) PO ONE (10:00)
[2020-05-01] MEDS ORDERED: METHADONE HCL 5 MG TABLET (FOR DETOX USE ONLY) PO ONE (06:00)
== END 2020-04-29 08:53 | disposition home or self-care (01) | DRG 773 ==
LOC: YASAS 08:19 → Y6N 09:17
PROVIDERS: ADMIT Allergy & Immunology; ATTEND Allergy & Immunology
PROC: HZ2ZZZZ Detoxification Services for Substance Abuse Treatment (ICD-10-PCS; principal; 2020-04-26)
DX: F11.23 Opioid dependence with withdrawal (principal); F13.20 Sedative, hypnotic or anxiolytic dependence, uncomplicated; F14.20 Cocaine dependence, uncomplicated; F17.210 Nicotine dependence, cigarettes, uncomplicated; F19.282 Other psychoactive substance dependence with psychoactive substance-induced sleep disorder; F19.24 Other psychoactive substance dependence with psychoactive substance-induced mood disorder; F31.9 Bipolar disorder, unspecified; F39 Unspecified mood [affective] disorder; F41.9 Anxiety disorder, unspecified; J45.909 Unspecified asthma, uncomplicated; L02.414 Cutaneous abscess of left upper limb; R74.0 Nonspecific elevation of levels of transaminase and lactic acid dehydrogenase [LDH]; Z62.810 Personal history of physical and sexual abuse in childhood; Z91.410 Personal history of adult physical and sexual abuse; Z91.013 Allergy to seafood
CPT/HCPCS: 36415; 80053; 85025; 85027; 86780; U0003

== ENCOUNTER 2022-07-02 11:49 | Inpatient (IN) | payer OTHER ==
[2022-07-02 12:27] VITALS: BMI 33.3
[2022-07-02] MEDS ORDERED: BENZOCAINE/MENTHOL (CHLORASEPTIC ) LOZENGE MM PRN (14:27)
[2022-07-02] MEDS ORDERED: NICOTINE POLACRILEX 2 MG GUM BUC PRN (14:27)
[2022-07-02] MEDS ORDERED: ACETAMINOPHEN 325 MG TABLET (FP) PO PRN ×2 (14:27)
[2022-07-02] MEDS ORDERED: MAGNESIUM HYDROX 2400MG/30ML ORAL SUSPENSION 30 ML CUP PO PRN (14:27)
[2022-07-02] MEDS ORDERED: IBUPROFEN 400 MG TABLET (FP) PO PRN (14:27)
[2022-07-02] MEDS ORDERED: NALOXONE HCL (KLOXXADO) 8 MG SPRAY NS PRN (14:27)
[2022-07-02] MEDS ORDERED: IBUPROFEN 600 MG TABLET (FP) PO PRN (14:27)
[2022-07-02] MEDS ORDERED: DICYCLOMINE HCL 10 MG CAPSULE PO PRN (14:27)
[2022-07-02] MEDS ORDERED: ONDANSETRON *ODT* 4 MG TABLET SL PRN (14:27)
[2022-07-02] MEDS ORDERED: LOPERAMIDE HCL 2 MG CAPSULE PO PRN (14:27)
[2022-07-02] MEDS ORDERED: MAGNESIUM CITRATE 300 ML BOTTLE PO PRN (14:27)
[2022-07-02] MEDS ORDERED: BISMUTH SUBSALICYLATE 262 MG/15 ML BTL PO PRN (14:27)
[2022-07-02] MEDS ORDERED: NICOTINE 10 MG CARTRIDGE (INHALER) IH PRN (14:27)
[2022-07-02] MEDS ORDERED: MAG HYDROX/AL HYDROX/SIMETH 30 ML UNIT-DOSE CUP PO PRN (14:27)
[2022-07-02] MEDS: diazePAM 5 MG TABLET PO SCH ×2 (16:05→22:52)
[2022-07-02] MEDS: diazePAM 5 MG TABLET PO PRN (18:30)
[2022-07-02] MEDS: DIVALPROEX SODIUM 500 MG TABLET E.C. PO SCH (22:51)
[2022-07-02] MEDS: THIAMINE HCL 100 MG TABLET (FP) PO SCH (22:52)
[2022-07-02] MEDS: METHOCARBAMOL 500 MG TABLET PO PRN (22:52)
[2022-07-02] MEDS: MELATONIN 5 MG TABLETS PO SCH (22:52)
[2022-07-03] MEDS: diazePAM 5 MG TABLET PO SCH ×4 (05:22→22:55)
[2022-07-03] MEDS ORDERED: methaDONE HCL 40 MG DISPERSABLE TABLET PO SCH (07:45)
[2022-07-03] MEDS: DIVALPROEX SODIUM 500 MG TABLET E.C. PO SCH ×2 (10:50→22:55)
[2022-07-03] MEDS: PRENATAL VITAMINS W/ FOLIC ACID TABLET (FP) PO SCH (10:50)
[2022-07-03] MEDS ORDERED: ALBUTEROL SO4 HFA INHALER IH PRN (11:04)
[2022-07-03 11:05] LABS: HEMOGLOBIN 15.6 GM/dL (11.7-16.9); MCH 30.9 pg (25.7-33.7); MCHC 33.8 g/dl (32.0-35.9); MEAN CELL VOLUME 91.2 fl (80-96); MEAN PLT VOLUME 7.4 fl (7.5-11.1); PLATELET COUNT 201 10^3/uL (134-434); RBC 5.04 M/mm3 (4.00-5.60); RDW 13.7 % (11.9-15.9); WHITE BLOOD COUNT 6.4 K/mm3 (4.0-10.0)
[2022-07-03 11:09] LABS: CALCIUM 8.8 mg/dL (8.5-10.1)
[2022-07-03 11:10] LABS: ALBUMIN 3.8 g/dl (3.4-5.0); BLOOD UREA NITROGEN 16.4 mg/dL (7-18)
[2022-07-03 11:13] LABS: CREATININE 0.8 mg/dL (0.55-1.3)
[2022-07-03 11:14] LABS: BILIRUBIN,TOTAL 0.6 mg/dL (0.2-1)
[2022-07-03] MEDS ORDERED: PNEUMOC 20-VAL CONJ-DIP CRM/PF 0.5 ML SYRINGE IM ONE (12:00)
[2022-07-03] MEDS: MELATONIN 5 MG TABLETS PO SCH (22:55)
[2022-07-03] MEDS: THIAMINE HCL 100 MG TABLET (FP) PO SCH (22:55)
[2022-07-04] MEDS: diazePAM 5 MG TABLET PO SCH ×3 (06:09→22:16)
[2022-07-04] MEDS: PRENATAL VITAMINS W/ FOLIC ACID TABLET (FP) PO SCH (10:47)
[2022-07-04] MEDS: DIVALPROEX SODIUM 500 MG TABLET E.C. PO SCH ×2 (10:48→22:15)
[2022-07-04] MEDS: diazePAM 5 MG TABLET PO PRN ×2 (10:54→17:58)
[2022-07-04] MEDS: hydrOXYzine PAMOATE 25 MG CAPSULE (FP) PO PRN ×2 (17:58→22:15)
[2022-07-04] MEDS: METHOCARBAMOL 500 MG TABLET PO PRN ×2 (17:58→22:45)
[2022-07-04] MEDS: MELATONIN 5 MG TABLETS PO SCH (22:15)
[2022-07-04] MEDS: THIAMINE HCL 100 MG TABLET (FP) PO SCH (22:15)
[2022-07-05] MEDS: diazePAM 5 MG TABLET PO SCH ×2 (05:52→17:42)
[2022-07-05] MEDS: PRENATAL VITAMINS W/ FOLIC ACID TABLET (FP) PO SCH (11:35)
[2022-07-05] MEDS: DIVALPROEX SODIUM 500 MG TABLET E.C. PO SCH ×2 (11:36→23:10)
[2022-07-05] MEDS: diazePAM 5 MG TABLET PO PRN (11:36)
[2022-07-05] MEDS ORDERED: SODIUM POLYSTYRENE SULFONATE 15 GM/60 ML BOTTLE PO ONE (12:00)
[2022-07-05 20:54] VITALS: RESP 18
[2022-07-05] MEDS: THIAMINE HCL 100 MG TABLET (FP) PO SCH (23:10)
[2022-07-05] MEDS: MELATONIN 5 MG TABLETS PO SCH (23:10)
[2022-07-05] MEDS: METHOCARBAMOL 500 MG TABLET PO PRN (23:10)
[2022-07-06] MEDS ORDERED: diazePAM 5 MG TABLET PO ONE (06:00)
[2022-07-06] MEDS: DIVALPROEX SODIUM 500 MG TABLET E.C. PO SCH ×2 (10:03→23:08)
[2022-07-06] MEDS: METHOCARBAMOL 500 MG TABLET PO PRN ×2 (10:03→23:07)
[2022-07-06] MEDS: PRENATAL VITAMINS W/ FOLIC ACID TABLET (FP) PO SCH (10:04)
[2022-07-06 11:19] LABS: BLOOD UREA NITROGEN 10.3 mg/dL (7-18); CALCIUM 8.8 mg/dL (8.5-10.1)
[2022-07-06 11:22] LABS: CREATININE 0.8 mg/dL (0.55-1.3)
[2022-07-06 21:02] VITALS: BP 133/58; PULSE 63; TEMP 98.9
[2022-07-06] MEDS: MELATONIN 5 MG TABLETS PO SCH (23:08)
[2022-07-06] MEDS: THIAMINE HCL 100 MG TABLET (FP) PO SCH (23:08)
[2022-07-07] MEDS: PRENATAL VITAMINS W/ FOLIC ACID TABLET (FP) PO SCH (09:00)
[2022-07-07] MEDS: DIVALPROEX SODIUM 500 MG TABLET E.C. PO SCH (09:00)
== END 2022-07-07 09:02 | disposition home or self-care (01) | DRG 773 ==
LOC: YASAS 11:49 → Y3N 16:17
PROVIDERS: ADMIT Allergy & Immunology; ATTEND Surgery
PROC: HZ2ZZZZ Detoxification Services for Substance Abuse Treatment (ICD-10-PCS; principal; 2022-07-02)
DX: F11.23 Opioid dependence with withdrawal (principal); F10.230 Alcohol dependence with withdrawal, uncomplicated; F13.20 Sedative, hypnotic or anxiolytic dependence, uncomplicated; F14.20 Cocaine dependence, uncomplicated; F17.210 Nicotine dependence, cigarettes, uncomplicated; U07.1 COVID-19; F31.9 Bipolar disorder, unspecified; F41.9 Anxiety disorder, unspecified; F43.10 Post-traumatic stress disorder, unspecified; E87.5 Hyperkalemia; J45.909 Unspecified asthma, uncomplicated; Z28.310 Unvaccinated for COVID-19; Z28.9 Immunization not carried out for unspecified reason; Z91.013 Allergy to seafood
CPT/HCPCS: 36415; 80048; 80053; 84132; 85027; 86780; 90677; 93005; 93010; C9803-CS; U0003; U0005

== ENCOUNTER 2022-10-12 07:47 | Inpatient (IN) | payer OTHER ==
[2022-10-12 08:49] VITALS: BMI 33.6
[2022-10-12] MEDS ORDERED: MAGNESIUM HYDROX 2400MG/30ML ORAL SUSPENSION 30 ML CUP PO PRN (09:25)
[2022-10-12] MEDS ORDERED: MAG HYDROX/AL HYDROX/SIMETH 30 ML UNIT-DOSE CUP PO PRN (09:25)
[2022-10-12] MEDS ORDERED: ACETAMINOPHEN 325 MG TABLET (FP) PO PRN ×2 (09:25)
[2022-10-12] MEDS ORDERED: NALOXONE HCL (KLOXXADO) 8 MG SPRAY NS PRN (09:25)
[2022-10-12] MEDS ORDERED: diazePAM 5 MG TABLET PO PRN (09:25)
[2022-10-12] MEDS ORDERED: IBUPROFEN 600 MG TABLET (FP) PO PRN (09:25)
[2022-10-12] MEDS ORDERED: LOPERAMIDE HCL 2 MG CAPSULE PO PRN (09:25)
[2022-10-12] MEDS ORDERED: BENZOCAINE/MENTHOL (CHLORASEPTIC ) LOZENGE MM PRN (09:25)
[2022-10-12] MEDS ORDERED: NICOTINE 10 MG CARTRIDGE (INHALER) IH PRN (09:25)
[2022-10-12] MEDS ORDERED: BISMUTH SUBSALICYLATE 524 MG/30 ML PO PRN (09:25)
[2022-10-12] MEDS ORDERED: hydrOXYzine PAMOATE 25 MG CAPSULE (FP) PO PRN (09:25)
[2022-10-12] MEDS ORDERED: IBUPROFEN 400 MG TABLET (FP) PO PRN (09:25)
[2022-10-12] MEDS ORDERED: NICOTINE POLACRILEX 4 MG GUM BUC PRN (09:25)
[2022-10-12] MEDS ORDERED: POLYETHYLENE GLYCOL (HEALTHYLAX) 3350 17 GM PACKET PO PRN (09:25)
[2022-10-12] MEDS ORDERED: DICYCLOMINE HCL 10 MG CAPSULE PO PRN (09:25)
[2022-10-12] MEDS ORDERED: ONDANSETRON *ODT* 4 MG TABLET SL PRN (09:25)
[2022-10-12] MEDS ORDERED: diazePAM 5 MG TABLET PO ONE (09:45)
[2022-10-12] MEDS ORDERED: PRENATAL VITAMINS W/ FOLIC ACID TABLET (FP) PO ONE (10:16)
[2022-10-12] MEDS: PRENATAL VITAMINS W/ FOLIC ACID TABLET (FP) PO SCH (10:17)
[2022-10-12] MEDS: diazePAM 5 MG TABLET PO SCH ×3 (10:50→22:37)
[2022-10-12 11:19] LABS: HEMATOCRIT 46.6 % (35.4-49); HEMOGLOBIN 15.5 GM/dL (11.7-16.9); MCH 31.4 pg (25.7-33.7); MCHC 33.4 g/dl (32.0-35.9); MEAN CELL VOLUME 94.2 fl (80-96); MEAN PLT VOLUME 7.3 fl (7.5-11.1); PLATELET COUNT 236 10^3/uL (134-434); RBC 4.94 M/mm3 (4.00-5.60); RDW 14.1 % (11.9-15.9); WHITE BLOOD COUNT 11.3 K/mm3 (4.0-10.0)
[2022-10-12 11:28] LABS: ALBUMIN 3.9 g/dl (3.4-5.0); BLOOD UREA NITROGEN 14.1 mg/dL (7-18)
[2022-10-12 11:29] LABS: CALCIUM 9.2 mg/dL (8.5-10.1)
[2022-10-12 11:31] LABS: CREATININE 0.7 mg/dL (0.55-1.3)
[2022-10-12 11:32] LABS: BILIRUBIN,TOTAL 0.4 mg/dL (0.2-1)
[2022-10-12 11:33] LABS: TOT PROT 7.5 g/dl (6.4-8.2)
[2022-10-12] MEDS: METHOCARBAMOL 500 MG TABLET PO PRN ×2 (11:55→22:37)
[2022-10-12] MEDS ORDERED: THIAMINE HCL 100 MG TABLET (FP) PO SCH (22:00)
[2022-10-12] MEDS ORDERED: MELATONIN 5 MG TABLETS PO SCH (22:00)
[2022-10-13] MEDS: diazePAM 5 MG TABLET PO SCH ×2 (05:28→10:04)
[2022-10-13] MEDS ORDERED: methaDONE HCL 10 MG TABLET PO SCH (06:00)
[2022-10-13] MEDS: PRENATAL VITAMINS W/ FOLIC ACID TABLET (FP) PO SCH (10:03)
[2022-10-13] MEDS: METHOCARBAMOL 500 MG TABLET PO PRN (10:04)
[2022-10-13 13:10] VITALS: BP 144/68; PULSE 71; RESP 16; TEMP 97
[2022-10-14] MEDS ORDERED: diazePAM 5 MG TABLET PO SCH (06:00)
[2022-10-15] MEDS ORDERED: diazePAM 5 MG TABLET PO SCH (06:00)
[2022-10-16] MEDS ORDERED: diazePAM 5 MG TABLET PO ONE (06:00)
== END 2022-10-13 13:26 | disposition left against medical advice (07) | DRG 770 ==
LOC: YASAS 07:47 → Y3N 10:12
PROVIDERS: ADMIT Allergy & Immunology; ATTEND Family Medicine
PROC: HZ2ZZZZ Detoxification Services for Substance Abuse Treatment (ICD-10-PCS; principal; 2022-10-12)
DX: F13.230 Sedative, hypnotic or anxiolytic dependence with withdrawal, uncomplicated (principal); F11.20 Opioid dependence, uncomplicated; F17.210 Nicotine dependence, cigarettes, uncomplicated; F31.9 Bipolar disorder, unspecified; F19.282 Other psychoactive substance dependence with psychoactive substance-induced sleep disorder; F19.24 Other psychoactive substance dependence with psychoactive substance-induced mood disorder; F43.10 Post-traumatic stress disorder, unspecified; J45.909 Unspecified asthma, uncomplicated; E78.5 Hyperlipidemia, unspecified; B18.2 Chronic viral hepatitis C; R56.9 Unspecified convulsions; Z91.013 Allergy to seafood
CPT/HCPCS: 36415; 80053; 85027; 86780; 87811; C9803-CS; U0003; U0005

== ENCOUNTER 2023-04-28 08:15 | Inpatient (IN) | payer OTHER ==
[2023-04-28 08:53] VITALS: BMI 34.1
[2023-04-28] MEDS ORDERED: BISMUTH SUBSALICYLATE 524 MG/30 ML PO PRN (09:30)
[2023-04-28] MEDS ORDERED: METHOCARBAMOL 500 MG TABLET PO PRN (09:30)
[2023-04-28] MEDS ORDERED: IBUPROFEN 400 MG TABLET (FP) PO PRN (09:30)
[2023-04-28] MEDS ORDERED: hydrOXYzine PAMOATE 25 MG CAPSULE (FP) PO PRN (09:30)
[2023-04-28] MEDS ORDERED: MAG HYDROX/AL HYDROX/SIMETH 30 ML UNIT-DOSE CUP PO PRN (09:30)
[2023-04-28] MEDS ORDERED: MAGNESIUM HYDROX 2400MG/30ML ORAL SUSPENSION 30 ML CUP PO PRN (09:30)
[2023-04-28] MEDS ORDERED: IBUPROFEN 600 MG TABLET (FP) PO PRN (09:30)
[2023-04-28] MEDS ORDERED: ONDANSETRON *ODT* 4 MG TABLET SL PRN (09:30)
[2023-04-28] MEDS ORDERED: NICOTINE POLACRILEX 2 MG GUM BUC PRN (09:30)
[2023-04-28] MEDS ORDERED: NALOXONE HCL (KLOXXADO) 8 MG SPRAY NS PRN (09:30)
[2023-04-28] MEDS ORDERED: NALOXONE HCL 0.4 MG/ML VIAL IM PRN (09:30)
[2023-04-28] MEDS ORDERED: ACETAMINOPHEN 325 MG TABLET (FP) PO PRN (09:30)
[2023-04-28] MEDS ORDERED: BENZONATATE 200 MG CAPSULE PO PRN (09:30)
[2023-04-28] MEDS ORDERED: DICYCLOMINE HCL 10 MG CAPSULE PO PRN (09:30)
[2023-04-28] MEDS ORDERED: LORazepam 2 MG/ML SDV VIAL IM ONE (09:30)
[2023-04-28] MEDS ORDERED: POLYETHYLENE GLYCOL (HEALTHYLAX) 3350 17 GM PACKET PO PRN (09:30)
[2023-04-28] MEDS ORDERED: guaiFENesin 600 MG TABLET.ER (FP) PO PRN (09:30)
[2023-04-28] MEDS ORDERED: BENZOCAINE/MENTHOL (CHLORASEPTIC ) LOZENGE MM PRN (09:30)
[2023-04-28] MEDS ORDERED: LOPERAMIDE HCL 2 MG CAPSULE PO PRN (09:30)
[2023-04-28] MEDS ORDERED: ALBUTEROL SO4 HFA INHALER IH PRN (09:37)
[2023-04-28] MEDS: PRENATAL VITAMINS W/ FOLIC ACID TABLET (FP) PO SCH (10:09)
[2023-04-28] MEDS: diazePAM 5 MG TABLET PO SCH ×3 (12:19→22:18)
[2023-04-28] MEDS: diazePAM 5 MG TABLET PO PRN ×2 (13:44→21:15)
[2023-04-28] MEDS: BUDESONIDE/FORMETEROL FUMARATE 80/4.5 mcg INHALER IH SCH (21:15)
[2023-04-28] MEDS ORDERED: THIAMINE HCL 100 MG TABLET (FP) PO SCH (22:00)
[2023-04-28] MEDS ORDERED: MELATONIN 5 MG TABLETS PO SCH (22:00)
[2023-04-29] MEDS: diazePAM 5 MG TABLET PO SCH ×2 (05:54→10:44)
[2023-04-29] MEDS ORDERED: methaDONE HCL 10 MG TABLET PO SCH (06:00)
[2023-04-29] MEDS: diazePAM 5 MG TABLET PO PRN (08:18)
[2023-04-29 09:15] VITALS: BP 134/79; PULSE 60; RESP 18; TEMP 97.1
[2023-04-29] MEDS: PRENATAL VITAMINS W/ FOLIC ACID TABLET (FP) PO SCH (10:44)
[2023-04-29] MEDS: BUDESONIDE/FORMETEROL FUMARATE 80/4.5 mcg INHALER IH SCH (10:44)
[2023-04-30] MEDS ORDERED: diazePAM 5 MG TABLET PO SCH (06:00)
[2023-05-01] MEDS ORDERED: diazePAM 5 MG TABLET PO SCH (06:00)
[2023-05-02] MEDS ORDERED: diazePAM 5 MG TABLET PO ONE (06:00)
== END 2023-04-29 09:19 | disposition left against medical advice (07) | DRG 770 ==
LOC: YASAS 08:15 → Y3N 09:54
PROVIDERS: ADMIT Allergy & Immunology; ATTEND Allergy & Immunology
PROC: HZ2ZZZZ Detoxification Services for Substance Abuse Treatment (ICD-10-PCS; principal; 2023-04-28)
DX: F13.230 Sedative, hypnotic or anxiolytic dependence with withdrawal, uncomplicated (principal); F11.20 Opioid dependence, uncomplicated; F17.210 Nicotine dependence, cigarettes, uncomplicated; F31.9 Bipolar disorder, unspecified; F41.9 Anxiety disorder, unspecified; F43.10 Post-traumatic stress disorder, unspecified; E78.5 Hyperlipidemia, unspecified; J45.30 Mild persistent asthma, uncomplicated
CPT/HCPCS: 87635

== ENCOUNTER 2023-07-27 20:39 | Emergency (ER) | payer OTHER ==
[2023-07-27 20:43] VITALS: PULSE 85; RESP 18; TEMP 97.6; BMI 33.3
[2023-07-27] MEDS ORDERED: ALBUTEROL SO4 HFA INHALER IH ONE (20:53)
[2023-07-27] MEDS ORDERED: KETOROLAC TROMETHAMINE 15 MG/ML VIAL IM ONE (21:04)
[2023-07-27] MEDS ORDERED: KETOROLAC TROMETHAMINE 30 MG/1 ML VIAL ONE (21:12)
[2023-07-27 22:46] VITALS: BP 122/88
== END 2023-07-28 00:03 | disposition home or self-care (01) ==
LOC: JER 20:39
PROC: 3E0233Z Introduction of Anti-inflammatory into Muscle, Percutaneous Approach (ICD-10-PCS; principal; 2023-07-27)
DX: S80.911A Unspecified superficial injury of right knee, initial encounter (principal); M25.461 Effusion, right knee; M25.561 Pain in right knee; W01.0XXA Fall on same level from slipping, tripping and stumbling without subsequent striking against object, initial encounter; Y93.89 Activity, other specified; Y92.512 Supermarket, store or market as the place of occurrence of the external cause
CPT/HCPCS: 72170-TC-FY; 73562-TC-RT-FY; 73700-TC-RT; 99284-25

== ENCOUNTER 2023-08-25 03:55 | Inpatient (IN) | payer OTHER ==
[2023-08-25 04:13] VITALS: BMI 32.5
[2023-08-25] MEDS ORDERED: NALOXONE HCL 0.4 MG/ML VIAL IM PRN (05:28)
[2023-08-25] MEDS ORDERED: BENZONATATE 200 MG CAPSULE PO PRN (05:28)
[2023-08-25] MEDS ORDERED: MAGNESIUM HYDROX 2400MG/30ML ORAL SUSPENSION 30 ML CUP PO PRN (05:28)
[2023-08-25] MEDS ORDERED: IBUPROFEN 400 MG TABLET (FP) PO PRN (05:28)
[2023-08-25] MEDS ORDERED: guaiFENesin 600 MG TABLET.ER (FP) PO PRN (05:28)
[2023-08-25] MEDS ORDERED: ONDANSETRON *ODT* 4 MG TABLET SL PRN (05:28)
[2023-08-25] MEDS ORDERED: BENZOCAINE/MENTHOL (CHLORASEPTIC ) LOZENGE MM PRN (05:28)
[2023-08-25] MEDS ORDERED: BISMUTH SUBSALICYLATE 524 MG/30 ML PO PRN (05:28)
[2023-08-25] MEDS ORDERED: MAG HYDROX/AL HYDROX/SIMETH 30 ML UNIT-DOSE CUP PO PRN (05:28)
[2023-08-25] MEDS ORDERED: IBUPROFEN 600 MG TABLET (FP) PO PRN (05:28)
[2023-08-25] MEDS ORDERED: DICYCLOMINE HCL 10 MG CAPSULE PO PRN (05:28)
[2023-08-25] MEDS ORDERED: POLYETHYLENE GLYCOL (HEALTHYLAX) 3350 17 GM PACKET PO PRN (05:28)
[2023-08-25] MEDS ORDERED: NICOTINE POLACRILEX 2 MG GUM BUC PRN (05:28)
[2023-08-25] MEDS ORDERED: hydrOXYzine PAMOATE 25 MG CAPSULE (FP) PO PRN (05:28)
[2023-08-25] MEDS ORDERED: ACETAMINOPHEN 325 MG TABLET (FP) PO PRN (05:28)
[2023-08-25] MEDS ORDERED: LOPERAMIDE HCL 2 MG CAPSULE PO PRN (05:28)
[2023-08-25] MEDS ORDERED: NALOXONE HCL (KLOXXADO) 8 MG SPRAY NS PRN (05:28)
[2023-08-25] MEDS ORDERED: methaDONE HCL 10 MG TABLET (FOR DETOX USE ONLY) ONE (06:36)
[2023-08-25] MEDS ORDERED: cloNIDine HCL 0.1 MG TABLET ONE (06:36)
[2023-08-25] MEDS ORDERED: METHOCARBAMOL 500 MG TABLET ONE (06:37)
[2023-08-25] MEDS: METHOCARBAMOL 500 MG TABLET PO PRN (06:41)
[2023-08-25] MEDS: cloNIDine HCL 0.1 MG TABLET PO PRN ×2 (06:41→22:38)
[2023-08-25] MEDS ORDERED: methaDONE HCL 10 MG TABLET (FOR DETOX USE ONLY) PO ONE (06:45)
[2023-08-25] MEDS ORDERED: NICOTINE 14 MG/24 HOURS TOPICAL PATCH TD ONE (09:13)
[2023-08-25] MEDS ORDERED: PRENATAL VITAMINS W/ FOLIC ACID TABLET (FP) PO ONE (09:13)
[2023-08-25] MEDS ORDERED: diazePAM 5 MG TABLET ONE (09:13)
[2023-08-25] MEDS: NICOTINE 14 MG/24 HOURS TOPICAL PATCH TD SCH (09:15)
[2023-08-25] MEDS: PRENATAL VITAMINS W/ FOLIC ACID TABLET (FP) PO SCH (09:16)
[2023-08-25] MEDS: diazePAM 5 MG TABLET PO PRN (09:18)
[2023-08-25] MEDS: diazePAM 5 MG TABLET PO SCH ×3 (11:43→22:36)
[2023-08-25] MEDS ORDERED: ALBUTEROL SO4 HFA INHALER IH PRN (13:50)
[2023-08-25] MEDS: amLODIPine BESYLATE 5 MG TABLET (FP) PO SCH (14:42)
[2023-08-25] MEDS ORDERED: THIAMINE HCL 100 MG TABLET (FP) PO SCH (22:00)
[2023-08-25] MEDS ORDERED: MELATONIN 5 MG TABLETS PO SCH (22:00)
[2023-08-26] MEDS: diazePAM 5 MG TABLET PO PRN (03:41)
[2023-08-26] MEDS: diazePAM 5 MG TABLET PO SCH ×2 (05:43→09:40)
[2023-08-26] MEDS: cloNIDine HCL 0.1 MG TABLET PO PRN (07:31)
[2023-08-26] MEDS: METHOCARBAMOL 500 MG TABLET PO PRN (07:31)
[2023-08-26] MEDS: PRENATAL VITAMINS W/ FOLIC ACID TABLET (FP) PO SCH (09:08)
[2023-08-26] MEDS: amLODIPine BESYLATE 5 MG TABLET (FP) PO SCH (09:09)
[2023-08-26] MEDS: NICOTINE 14 MG/24 HOURS TOPICAL PATCH TD SCH (09:11)
[2023-08-26 09:21] VITALS: BP 149/81; PULSE 84; RESP 19; TEMP 98.1
[2023-08-27] MEDS ORDERED: diazePAM 5 MG TABLET PO SCH (06:00)
[2023-08-27] MEDS ORDERED: methaDONE HCL 10 MG TABLET (FOR DETOX USE ONLY) PO ONE (10:00)
[2023-08-28] MEDS ORDERED: diazePAM 5 MG TABLET PO SCH (06:00)
[2023-08-29] MEDS ORDERED: diazePAM 5 MG TABLET PO ONE (06:00)
[2023-08-29] MEDS ORDERED: methaDONE HCL 10 MG TABLET (FOR DETOX USE ONLY) PO ONE (10:00)
== END 2023-08-26 09:50 | disposition left against medical advice (07) | DRG 770 ==
LOC: YASAS 03:55 → SUATTDRO 03:55 → Y6N 09:17
PROVIDERS: ADMIT Allergy & Immunology; ATTEND Surgery
PROC: HZ2ZZZZ Detoxification Services for Substance Abuse Treatment (ICD-10-PCS; principal; 2023-08-25)
DX: F11.23 Opioid dependence with withdrawal (principal); F13.230 Sedative, hypnotic or anxiolytic dependence with withdrawal, uncomplicated; F17.210 Nicotine dependence, cigarettes, uncomplicated; F31.9 Bipolar disorder, unspecified; F41.9 Anxiety disorder, unspecified; F43.10 Post-traumatic stress disorder, unspecified; E78.5 Hyperlipidemia, unspecified; I10 Essential (primary) hypertension; J45.20 Mild intermittent asthma, uncomplicated
CPT/HCPCS: 87635; 87811; 93005; 93010

== ENCOUNTER 2024-01-06 09:02 | Inpatient (IN) | payer OTHER ==
[2024-01-06 09:42] VITALS: BMI 31.1
[2024-01-06] MEDS ORDERED: ALBUTEROL SO4 HFA INHALER IH PRN (09:57)
[2024-01-06] MEDS ORDERED: LACTULOSE 20 GM/30 ML UDC (FOR ORAL USE ONLY) PO PRN (10:05)
[2024-01-06] MEDS ORDERED: BISACODYL 5 MG TABLET.DR (FP) PO PRN (10:06)
[2024-01-06] MEDS ORDERED: IBUPROFEN 400 MG TABLET (FP) PO PRN (10:06)
[2024-01-06] MEDS ORDERED: NALOXONE HCL (KLOXXADO) 8 MG SPRAY NS PRN (10:06)
[2024-01-06] MEDS ORDERED: POLYETHYLENE GLYCOL (HEALTHYLAX) 3350 17 GM PACKET PO PRN (10:06)
[2024-01-06] MEDS ORDERED: IBUPROFEN 600 MG TABLET (FP) PO PRN (10:06)
[2024-01-06] MEDS ORDERED: guaiFENesin 600 MG TABLET.ER (FP) PO PRN (10:06)
[2024-01-06] MEDS ORDERED: BISMUTH SUBSALICYLATE 262 MG/15 ML BTL PO PRN (10:06)
[2024-01-06] MEDS ORDERED: BENZONATATE 200 MG CAPSULE PO PRN (10:06)
[2024-01-06] MEDS ORDERED: MAG HYDROX/AL HYDROX/SIMETH 30 ML UNIT-DOSE CUP PO PRN (10:06)
[2024-01-06] MEDS ORDERED: ONDANSETRON *ODT* 4 MG TABLET SL PRN (10:06)
[2024-01-06] MEDS ORDERED: ACETAMINOPHEN 325 MG TABLET (FP) PO PRN (10:06)
[2024-01-06] MEDS ORDERED: DICYCLOMINE HCL 10 MG CAPSULE PO PRN (10:06)
[2024-01-06] MEDS ORDERED: BENZOCAINE/MENTHOL (CHLORASEPTIC ) LOZENGE MM PRN (10:06)
[2024-01-06] MEDS ORDERED: NALOXONE HCL 0.4 MG/ML VIAL IM PRN (10:06)
[2024-01-06] MEDS ORDERED: LOPERAMIDE HCL 2 MG CAPSULE PO PRN (10:06)
[2024-01-06] MEDS ORDERED: levETIRAcetam 500 MG TABLET (FP) PO ONE (12:30)
[2024-01-06] MEDS ORDERED: diazePAM 5 MG TABLET ONE (12:30)
[2024-01-06] MEDS: diazePAM 5 MG TABLET PO SCH (12:33)
[2024-01-06] MEDS: levETIRAcetam 500 MG TABLET (FP) PO SCH (12:33)
[2024-01-06] MEDS: DOCUSATE SODIUM 100 MG CAPSULE (FP) PO ONE ×3 (12:35→19:42)
[2024-01-06] MEDS: LACTULOSE 20 GM/30 ML UDC (FOR ORAL USE ONLY) PO ONE (12:35)
[2024-01-06] MEDS: THIAMINE 100 MG TABLET PO SCH (22:17)
[2024-01-06] MEDS: MELATONIN 5 MG TABLETS PO SCH (22:18)
[2024-01-06] MEDS: QUEtiapine FUMARATE 100 MG TABLET (FP) PO SCH (22:20)
[2024-01-07] MEDS ORDERED: methaDONE HCL 40 MG DISPERSABLE TABLET PO SCH (06:30)
[2024-01-07] MEDS ORDERED: amLODIPine BESYLATE 5 MG TABLET (FP) PO SCH (10:00)
[2024-01-07] MEDS: PRENATAL VITAMINS W/ FOLIC ACID TABLET (FP) PO SCH (10:10)
[2024-01-07] MEDS: amLODIPine BESYLATE 5 MG TABLET (FP) PO SCH (10:10)
[2024-01-07 11:54] LABS: HEMOGLOBIN 15.6 GM/dL (11.7-16.9); MCH 31.1 pg (25.7-33.7); MCHC 33.9 g/dl (32.0-35.9); MEAN CELL VOLUME 91.8 fl (80-96); MEAN PLT VOLUME 7.5 fl (7.5-11.1); PLATELET COUNT 220 10^3/uL (134-434); RBC 5.01 M/mm3 (4.00-5.60); RDW 13.7 % (11.9-15.9); WHITE BLOOD COUNT 9.1 K/mm3 (4.0-10.0)
[2024-01-07 11:58] LABS: POTASSIUM 4.1 mmol/L (3.5-5.1)
[2024-01-07 12:04] LABS: CALCIUM 8.8 mg/dL (8.5-10.1)
[2024-01-07 12:05] LABS: ALBUMIN 3.7 g/dl (3.4-5.0); BLOOD UREA NITROGEN 17.5 mg/dL (7-18)
[2024-01-07 12:06] LABS: CREATININE 0.9 mg/dL (0.55-1.3)
[2024-01-07 12:08] LABS: BILIRUBIN,TOTAL 0.3 mg/dL (0.2-1); TOT PROT 6.6 g/dl (6.4-8.2)
[2024-01-07] MEDS: diazePAM 5 MG TABLET PO PRN (14:11)
[2024-01-07] MEDS: MAGNESIUM HYDROX 2400MG/30ML ORAL SUSPENSION 30 ML CUP PO PRN (17:17)
[2024-01-08] MEDS: diazePAM 5 MG TABLET PO SCH (05:33)
[2024-01-08] MEDS: METHOCARBAMOL 500 MG TABLET PO PRN (07:49)
[2024-01-09] MEDS: diazePAM 5 MG TABLET PO SCH (05:33)
[2024-01-09 16:41] VITALS: RESP 18
[2024-01-10] MEDS: diazePAM 5 MG TABLET PO ONE (05:45)
[2024-01-10 09:36] VITALS: BP 127/90; PULSE 104; TEMP 98
== END 2024-01-10 09:20 | disposition home or self-care (01) | DRG 773 ==
LOC: YASAS 09:02 → Y6N 12:19
PROVIDERS: ADMIT Allergy & Immunology; ATTEND Surgery
PROC: HZ2ZZZZ Detoxification Services for Substance Abuse Treatment (ICD-10-PCS; principal; 2024-01-06)
DX: F13.230 Sedative, hypnotic or anxiolytic dependence with withdrawal, uncomplicated (principal); F11.20 Opioid dependence, uncomplicated; F17.210 Nicotine dependence, cigarettes, uncomplicated; F31.9 Bipolar disorder, unspecified; F19.282 Other psychoactive substance dependence with psychoactive substance-induced sleep disorder; F19.280 Other psychoactive substance dependence with psychoactive substance-induced anxiety disorder; F19.24 Other psychoactive substance dependence with psychoactive substance-induced mood disorder; F43.10 Post-traumatic stress disorder, unspecified; I10 Essential (primary) hypertension; R73.9 Hyperglycemia, unspecified; Z62.810 Personal history of physical and sexual abuse in childhood; Z63.8 Other specified problems related to primary support group; Z86.19 Personal history of other infectious and parasitic diseases
CPT/HCPCS: 36415; 80053; 80305; 80307; 82962; 85027; 86780; 93005; 93010

== ENCOUNTER 2024-03-10 08:26 | Inpatient (IN) | payer OTHER ==
[2024-03-10 08:43] VITALS: BMI 31.1
[2024-03-10] MEDS ORDERED: MAG HYDROX/AL HYDROX/SIMETH 30 ML UNIT-DOSE CUP PO PRN (09:35)
[2024-03-10] MEDS ORDERED: POLYETHYLENE GLYCOL (HEALTHYLAX) 3350 17 GM PACKET PO PRN (09:35)
[2024-03-10] MEDS ORDERED: BENZOCAINE/MENTHOL (CHLORASEPTIC ) LOZENGE MM PRN (09:35)
[2024-03-10] MEDS ORDERED: MAGNESIUM HYDROX 2400MG/30ML ORAL SUSPENSION 30 ML CUP PO PRN (09:35)
[2024-03-10] MEDS ORDERED: LOPERAMIDE HCL 2 MG CAPSULE PO PRN (09:35)
[2024-03-10] MEDS ORDERED: NICOTINE POLACRILEX 2 MG GUM BUC PRN (09:35)
[2024-03-10] MEDS ORDERED: ACETAMINOPHEN 325 MG TABLET (FP) PO PRN (09:35)
[2024-03-10] MEDS ORDERED: DICYCLOMINE HCL 10 MG CAPSULE PO PRN (09:35)
[2024-03-10] MEDS ORDERED: guaiFENesin 600 MG TABLET.ER (FP) PO PRN (09:35)
[2024-03-10] MEDS ORDERED: BISMUTH SUBSALICYLATE 262 MG/15 ML BTL PO PRN (09:35)
[2024-03-10] MEDS ORDERED: IBUPROFEN 400 MG TABLET (FP) PO PRN (09:35)
[2024-03-10] MEDS ORDERED: NALOXONE (NARCAN) HCL 4 MG/0.1 ML SPRAY NS PRN (09:35)
[2024-03-10] MEDS ORDERED: BENZONATATE 200 MG CAPSULE PO PRN (09:35)
[2024-03-10] MEDS ORDERED: NALOXONE HCL 0.4 MG/ML VIAL IM PRN (09:35)
[2024-03-10] MEDS ORDERED: ONDANSETRON *ODT* 4 MG TABLET SL PRN (09:35)
[2024-03-10] MEDS: levETIRAcetam 500 MG TABLET (FP) PO SCH ×2 (10:07→22:34)
[2024-03-10] MEDS: cloNIDine HCL 0.1 MG TABLET PO ONE (10:07)
[2024-03-10] MEDS ORDERED: NICOTINE 21 MG/24 HOURS TOPICAL PATCH ONE (10:27)
[2024-03-10] MEDS ORDERED: PRENATAL VITAMINS W/ FOLIC ACID TABLET (FP) PO ONE (10:28)
[2024-03-10] MEDS: PRENATAL VITAMINS W/ FOLIC ACID TABLET (FP) PO SCH (10:32)
[2024-03-10] MEDS: NICOTINE 21 MG/24 HOURS TOPICAL PATCH TD SCH (10:32)
[2024-03-10] MEDS: diazePAM 5 MG TABLET PO SCH (10:48)
[2024-03-10] MEDS ORDERED: ALBUTEROL SO4 HFA INHALER IH PRN (16:03)
[2024-03-10] MEDS: METHOCARBAMOL 500 MG TABLET PO PRN (17:24)
[2024-03-10] MEDS: hydrOXYzine PAMOATE 25 MG CAPSULE (FP) PO PRN (22:33)
[2024-03-10] MEDS: THIAMINE 100 MG TABLET PO SCH (22:33)
[2024-03-10] MEDS: MELATONIN 5 MG TABLETS PO SCH (22:34)
[2024-03-11] MEDS ORDERED: methaDONE HCL 10 MG TABLET PO ONE (09:08)
[2024-03-11] MEDS: methaDONE 40 MG, methaDONE 20 MG PO ONE (09:34)
[2024-03-11 14:04] LABS: HEMATOCRIT 45.4 % (35.4-49); HEMOGLOBIN 15.6 GM/dL (11.7-16.9); MCH 31.2 pg (25.7-33.7); MCHC 34.2 g/dl (32.0-35.9); MEAN CELL VOLUME 91.2 fl (80-96); MEAN PLT VOLUME 7.7 fl (7.5-11.1); PLATELET COUNT 263 10^3/uL (134-434); RBC 4.98 M/mm3 (4.00-5.60); RDW 13.7 % (11.9-15.9); WHITE BLOOD COUNT 8.8 K/mm3 (4.0-10.0)
[2024-03-11 14:09] LABS: POTASSIUM 4.8 mmol/L (3.5-5.1)
[2024-03-11 14:13] LABS: BLOOD UREA NITROGEN 13.5 mg/dL (7-18); CALCIUM 9.2 mg/dL (8.5-10.1)
[2024-03-11 14:14] LABS: ALBUMIN 3.9 g/dl (3.4-5.0)
[2024-03-11 14:17] LABS: BILIRUBIN,TOTAL 0.6 mg/dL (0.2-1)
[2024-03-11 14:19] LABS: CREATININE 0.7 mg/dL (0.55-1.3)
[2024-03-11] MEDS ORDERED: ALBUTEROL SO4 HFA INHALER IH PRN (15:09)
[2024-03-11] MEDS: QUEtiapine FUMARATE 100 MG TABLET (FP) PO SCH (22:52)
[2024-03-11] MEDS: levETIRAcetam 500 MG TABLET (FP) PO SCH (23:21)
[2024-03-12] MEDS: methaDONE 40 MG, methaDONE 20 MG PO SCH (05:27)
[2024-03-12] MEDS: diazePAM 5 MG TABLET PO SCH (05:28)
[2024-03-12] MEDS ORDERED: methaDONE HCL 10 MG TABLET PO SCH (06:00)
[2024-03-12] MEDS: IBUPROFEN 600 MG TABLET (FP) PO PRN (11:06)
[2024-03-12] MEDS: diazePAM 5 MG TABLET PO PRN (11:06)
[2024-03-12] MEDS: amLODIPine BESYLATE 5 MG TABLET (FP) PO SCH (11:10)
[2024-03-12] MEDS: BENZOCAINE 20 % GEL TUBE MM PRN (22:42)
[2024-03-13] MEDS: diazePAM 5 MG TABLET PO SCH (05:33)
[2024-03-13 08:45] VITALS: BP 137/86; PULSE 93; RESP 18; TEMP 96.8
[2024-03-13] MEDS ORDERED: AMOXICILLIN 500 MG CAPSULE (FP) PO SCH (14:00)
[2024-03-14] MEDS ORDERED: diazePAM 5 MG TABLET PO ONE (06:00)
== END 2024-03-13 09:00 | disposition home or self-care (01) | DRG 773 ==
LOC: YASAS 08:26 → Y6N 10:18
PROVIDERS: ADMIT Allergy & Immunology; ATTEND Surgery
PROC: HZ2ZZZZ Detoxification Services for Substance Abuse Treatment (ICD-10-PCS; principal; 2024-03-10)
DX: F13.230 Sedative, hypnotic or anxiolytic dependence with withdrawal, uncomplicated (principal); F11.20 Opioid dependence, uncomplicated; F17.210 Nicotine dependence, cigarettes, uncomplicated; F25.0 Schizoaffective disorder, bipolar type; F19.280 Other psychoactive substance dependence with psychoactive substance-induced anxiety disorder; F19.282 Other psychoactive substance dependence with psychoactive substance-induced sleep disorder; F43.10 Post-traumatic stress disorder, unspecified; I10 Essential (primary) hypertension; J45.20 Mild intermittent asthma, uncomplicated; K02.9 Dental caries, unspecified; Z62.810 Personal history of physical and sexual abuse in childhood; Z63.8 Other specified problems related to primary support group
CPT/HCPCS: 36415; 80053; 80305; 80307; 85027; 86780; 93005; 93010